=== PATIENT | female | born 1975 | race Caucasian/White ===

== ENCOUNTER 2019-04-29 22:17 | Emergency (ER) | payer OTHER ==
[2019-04-29] MEDS ORDERED: LEVALBUTEROL 1.25 MG/3 ML NEB ONE (22:45)
[2019-04-29] MEDS ORDERED: IBUPROFEN 400 MG TAB ONE (23:22)
[2019-04-29] MEDS ORDERED: IBUPROFEN 200 MG TAB PO ONE (23:22)
[2019-04-29] MEDS ORDERED: DEXAMETHASONE 4 MG TAB ONE (23:22)
[2019-04-29] MEDS ORDERED: BENZONATATE 100 MG CAP PO ONE (23:22)
--- NOTE | 2019-04-30 00:54 | ER ---
Nurse's Notes [facility] Name: Inés Curry Age: 43 yrs Sex: Female : 1975 Arrival Date: 04/29/2019 Time: 22:18 Bed 25 Private MD: Juan Dueñas Diagnosis: Acute pharyngitis Presentation: 04/29 22:25 Presenting complaint: Patient states: states she has had a sore throat, headache and fc dry nonproductive cough x 2 days. 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 Transition of care: patient was not received from another setting of care. Onset of symptoms was April 29, 2019 at 22:00. Risk Assessment: Do you want to hurt yourself or someone else? Patient reports no desire to harm self or others. Initial Sepsis Screen: Does the patient meet any 2 criteria? HR > 90 bpm. Yes Does the patient have a suspected source of infection? No. Patient's initial sepsis screen is negative. Care prior to arrival: None. 22:25 Method Of Arrival: Wheelchair 22:25 Acuity: DOUGLAS 3 fc Triage Assessment: 22:25 General: Appears uncomfortable, slender, Behavior is calm, cooperative, appropriate for age. Pain: Complains of pain in chest Pain currently is 3 out of 10 on a pain scale. Quality of pain is described as aching, Pain began suddenly. EENT: Reports pain in throat. Neuro: Level of Consciousness is awake, alert, obeys commands, Oriented to person, place, time, situation, Appropriate for age. Cardiovascular: Reports chest pain, shortness of breath, Heart tones S1 S2 Capillary refill < 3 seconds. Respiratory: Reports shortness of breath cough that is non-productive, dry, hacking, Airway is patent Respiratory effort is even, unlabored, shallow, Respiratory pattern is tachypnea Breath sounds are clear bilaterally. Onset: The symptoms/episode began/occurred gradually, the patient has moderate shortness of breath. GI: No deficits noted. : No deficits noted. Derm: Skin is pink, warm \T\ dry. Musculoskeletal: Circulation, motion, and sensation intact. Capillary refill < 3 seconds, Range of motion: intact in all extremities. 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 - Social history:: Smoking status: Patient/guardian denies using tobacco, Patient/guardian denies using alcohol, street drugs. - Ebola Screening: : Patient negative for fever greater than or equal to 101.5 degrees Fahrenheit, and additional compatible Ebola Virus Disease symptoms Patient denies exposure to infectious person Patient denies travel to an Ebola-affected area in the 21 days before illness onset. Screenin:25 Abuse screen: Denies threats or abuse. Denies injuries from another. Nutritional fc screening: No deficits noted. Tuberculosis screening: No symptoms or risk factors identified. Fall Risk None identified. Assessment: 22:40 General: Appears in no apparent distress. comfortable, Behavior is calm, cooperative, ca1 appropriate for age. 22:40 Pain: Denies pain. Neuro: Level of Consciousness is awake, alert, obeys commands, ca1 Oriented to person, place, time, situation. Cardiovascular: Heart tones S1 S2 present Capillary refill < 3 seconds Patient's skin is warm and dry. Rhythm is sinus rhythm. Respiratory: Reports cough that is Airway is patent Respiratory effort is even, unlabored, Respiratory pattern is regular, symmetrical, Breath sounds are clear bilaterally. Derm: Skin is intact, is healthy with good turgor, Skin is pink, warm \T\ dry. Musculoskeletal: Circulation, motion, and sensation intact. Capillary refill < 3 seconds. 22:58 Reassessment: Dr. Francisco at bedside. ca1 23:42 Reassessment: Patient appears in no apparent distress at this time. Patient is alert, ca1 oriented x 3, equal unlabored respirations, skin warm/dry/pink. Patient states feeling better. 04/30 00:40 Reassessment: Patient appears in no apparent distress at this time. Patient is alert, ca1 oriented x 3, equal unlabored respirations, skin warm/dry/pink. Vital Signs: 04/29 22:25 BP 113 / 66; Pulse 122; Resp 26; Temp 99.3(O); Pulse Ox 100% on R/A; Weight 52.16 kg fc (R); Height 4 ft. 11 in. (149.86 cm) (R); Pain 3/10; 23:03 Temp 98.9(O); ca1 23:42 BP 109 / 66; Pulse 96; Resp 20; Pulse Ox 95% on R/A; ca1 04/30 00:40 BP 111 / 71; Pulse 93; Resp 19; Temp 98.9; Pulse Ox 95% on R/A; ca1 04/29 22:25 Body Mass Index 23.23 (52.16 kg, 149.86 cm) ED Course: 04/29 22:18 Patient arrived in ED. am2 22:18 Juan Dueñas MD is Private Physician. am2 22:22 Jerica Rodriguez, HAO is Primary Nurse. ca1 22:25 Arm band placed on Patient placed in an exam room, on a stretcher. fc 22:25 Patient has correct armband on for positive identification. Bed in low position. Call fc light in reach. monitoring and evaluation advisor on. Pulse ox on. NIBP on. 22:25 No provider procedures requiring assistance completed. fc 22:36 Alec Francisco MD is Attending Physician. ps1 22:36 Triage completed. 04/30 00:53 Juan Dueñas MD is Referral Physician. ps1 01:01 Patient did not have IV access during this emergency room visit. ca1 Administered Medications: 04/29 22:32 Drug: Xopenex 1.25 mg Route: Inhalation; fc 22:46 Follow up: Response: No adverse reaction; Marked relief of symptoms fc 23:05 Drug: Decadron 10 mg Route: PO; ca1 23:56 Follow up: Response: No adverse reaction ca1 23:10 Drug: Tessalon Perle 200 mg Route: PO; ca1 23:56 Follow up: Response: No adverse reaction ca1 23:15 Drug: Ibuprofen 600 mg Route: PO; ca1 23:56 Follow up: Response: No adverse reaction ca1 Outcome: 04/30 00:54 Discharge ordered by . ps1 01:01 Discharged to home ambulatory, with significant other. ca1 01:01 Condition: stable 01:01 Discharge instructions given to patient, Instructed on discharge instructions, follow up and referral plans. medication usage, Demonstrated understanding of instructions, follow-up care, medications, Prescriptions given X 2. 01:02 Patient left the ED. ca1 Signatures: Clarice Thao RN RN fc Salome Obregon am2 Alec Francisco MD MD ps1 Jerica Rodriguez RN RN ca1 Corrections: (The following items were deleted from the chart) 04/29 23:02 22:35 General: Appears ca1 ca1 23:46 23:42 BP 109 / 68; ca1 ca1
--- NOTE | 2019-04-30 00:54 | EDPHYS ---
Physician Documentation [facility] Name: Inés Curry Age: 43 yrs Sex: Female : 1975 Arrival Date: 04/29/2019 Time: 22:18 Bed 25 Private MD: Juan Dueñas ED Physician Alec Francisco HPI: 04/29 23:41 This 43 yrs old Female presents to ER via Wheelchair with complaints of ps1 Breathing Difficulty, Shortness Of Breath, Cough. 23:41 patient states that she has had PND and sore throat for a couple of days. States ps1 tonight she got into a coughing fit and then had shortness of breath and wheezing. Patient has no hx of asthma. Symptoms have since improved and was given xopenex prior to my evaluation. Patient has taken DXM for cough symptoms and no allergy medications 2/2 hx of adverse reaction to pseudaphed r/t tachycardia. 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 - Social history:: Smoking status: Patient/guardian denies using tobacco, Patient/guardian denies using alcohol, street drugs. - Ebola Screening: : Patient negative for fever greater than or equal to 101.5 degrees Fahrenheit, and additional compatible Ebola Virus Disease symptoms Patient denies exposure to infectious person Patient denies travel to an Ebola-affected area in the 21 days before illness onset. ROS: 23:41 Constitutional: Negative for fever, chills, and weight loss, Eyes: Negative for injury, ps1 pain, redness, and discharge, ENT: Negative for injury, pain, and discharge, Cardiovascular: Negative for chest pain, palpitations, and edema, Abdomen/GI: Negative for abdominal pain, nausea, vomiting, diarrhea, and constipation, Back: Negative for injury and pain, MS/Extremity: Negative for injury and deformity, Skin: Negative for injury, rash, and discoloration, Neuro: Negative for headache, weakness, numbness, tingling, and seizure. 23:41 ENT: Positive for sinus congestion. 23:41 Respiratory: Positive for cough, with no reported sputum. Exam: 23:41 Constitutional: This is a well developed, well nourished patient who is awake, alert, ps1 and in no acute distress. Head/Face: Normocephalic, atraumatic. Eyes: Pupils equal round and reactive to light, extra-ocular motions intact. Lids and lashes normal. Conjunctiva and sclera are non-icteric and not injected. ENT: Nares patent. No nasal discharge, no septal abnormalities noted. Tympanic membranes are normal and external auditory canals are clear. Oropharynx with no redness, swelling, or masses, exudates, or evidence of obstruction, uvula midline. Mucous membranes moist. Chest/axilla: Normal chest wall appearance and motion. Nontender with no deformity. No lesions are appreciated. Cardiovascular: Regular rate and rhythm. No gallops, murmurs, or rubs. Normal PMI, no JVD. No pulse deficits. Respiratory: Lungs have equal breath sounds bilaterally, clear to auscultation and percussion. No rales, rhonchi or wheezes noted. No increased work of breathing, no retractions or nasal flaring. Abdomen/GI: Soft, non-tender, with normal bowel sounds. No distension or tympany. No guarding or rebound. No evidence of tenderness throughout. Skin: Warm, dry with normal turgor. Normal color with no rashes, no lesions, and no evidence of cellulitis. MS/ Extremity: Pulses equal, no cyanosis. Neurovascular intact. Full, normal range of motion. Neuro: Awake and alert, GCS 15, oriented to person, place, time, and situation. Cranial nerves II-XII grossly intact. Sensory grossly intact. Psych: Awake, alert, with orientation to person, place and time. Behavior, mood, and affect are within normal limits. Vital Signs: 22:25 BP 113 / 66; Pulse 122; Resp 26; Temp 99.3(O); Pulse Ox 100% on R/A; Weight 52.16 kg fc (R); Height 4 ft. 11 in. (149.86 cm) (R); Pain 3/10; 23:03 Temp 98.9(O); ca1 23:42 BP 109 / 66; Pulse 96; Resp 20; Pulse Ox 95% on R/A; ca1 04/30 00:40 BP 111 / 71; Pulse 93; Resp 19; Temp 98.9; Pulse Ox 95% on R/A; ca1 04/29 22:25 Body Mass Index 23.23 (52.16 kg, 149.86 cm) fc MDM: 04/29 23:04 Patient medically screened. ps1 04/29 23:01 Order name: Strep; Complete Time: 00:21 ps1 04/29 23:01 Order name: Flu; Complete Time: 00:21 ps1 04/30 00:22 Order name: Throat Culture EDMS Administered Medications: 22:32 Drug: Xopenex 1.25 mg Route: Inhalation; fc 22:46 Follow up: Response: No adverse reaction; Marked relief of symptoms fc 23:05 Drug: Decadron 10 mg Route: PO; ca1 23:56 Follow up: Response: No adverse reaction ca1 23:10 Drug: Tessalon Perle 200 mg Route: PO; ca1 23:56 Follow up: Response: No adverse reaction ca1 23:15 Drug: Ibuprofen 600 mg Route: PO; ca1 23:56 Follow up: Response: No adverse reaction ca1 Disposition: 04/30/19 00:54 Discharged to Home. Impression: Acute pharyngitis. - Condition is Stable. - Discharge Instructions: Pharyngitis. - Prescriptions for Tessalon Perles 100 mg Oral Capsule - take 1 capsule by ORAL route every 8 hours As needed; 15 capsule. chlorpheniramine maleate 4 mg Oral Tablet - take 1 tablet by ORAL route every 6 hours As needed; 30 tablet. - Medication Reconciliation Form, Thank You Letter, Antibiotic Education, Prescription Opioid Use form. - Follow up: Juan Dueñas MD; When: As needed; Reason: Further diagnostic work-up, Recheck today's complaints, Continuance of care, Re-evaluation by your physician. Follow up: Emergency Department; When: As needed; Reason: Fever > 102 F, Worsening of condition. - Problem is new. - Symptoms have improved. Signatures: Dispatcher [employer] EDMS Clarice Thao RN RN fc Alec Francisco MD MD ps1 Jerica Rodriguez RN RN ca1 Corrections: (The following items were deleted from the chart) 04/30 01:02 00:54 04/30/2019 00:54 Discharged to Home. Impression: Acute pharyngitis. Condition is ca1 Stable. Forms are Medication Reconciliation Form, Thank You Letter, Antibiotic Education, Prescription Opioid Use. Follow up: Juan Dueñas; When: As needed; Reason: Further diagnostic work-up, Recheck today's complaints, Continuance of care, Re-evaluation by your physician. Follow up: Emergency Department; When: As needed; Reason: Fever > 102 F, Worsening of condition. Problem is new. Symptoms have improved. ps1
--- NOTE | 2019-04-30 07:54 | EKG ---
Test Date: 2019-04-29 Test Time: 22:36:59 Home Delivery Driver: PATIENCE MEASUREMENT RESULTS: Intervals: Rate: 124 TX: 116 QRSD: 86 QT: 324 QTc: 465 [place]: P: 42 TX: 116 QRS: -8 T: -70 INTERPRETIVE STATEMENTS: Sinus tachycardia ST & T wave abnormality, consider inferior ischemia ST & T wave abnormality, consider anterolateral ischemia Abnormal ECG No previous ECG available for comparison Electronically Signed On 04-30-19 07:52:47 CDT by Ari Brewer
== END 2019-04-30 01:02 | disposition home or self-care (01) ==
LOC: ER 22:17
DX: J02.9 Acute pharyngitis, unspecified (principal); F32.9 Major depressive disorder, single episode, unspecified
CPT/HCPCS: 87070; 87081; 87804; 93005; 99284

== ENCOUNTER 2020-02-02 20:05 | Inpatient (IN) | payer OTHER ==
[2020-02-02] MEDS ORDERED: ONDANSETRON 4 MG/2 ML VIAL ONE (20:52)
[2020-02-02] MEDS ORDERED: NA CHLORIDE 0.9% 1,000 ML ONE (20:52)
[2020-02-02 20:53] LABS: Absolute Lymphocytes (CBC) 0.4 K/uL (0.7-4.9); Basophils % 0.1 % (0-1.3); Hematocrit 40.5 % (36.0-45.0); Lymphocytes % 3.7 % (15.3-44.8); MPV 10.1 fL (7.6-11.3); RBC Red Blood Cell Count 4.44 M/uL (3.86-4.86)
[2020-02-02 21:12] LABS: Bilirubin Direct 0.1 mg/dL (0-0.2); Bilirubin Total 0.3 mg/dL (0.2-1.0); Potassium 4.3 mmol/L (3.5-5.1); Protein, Total 7.2 g/dL (6.4-8.2)
[2020-02-02 21:19] LABS: Blood Morphology Comment NOT SEEN (NOT SEEN); Platelet Estimate ADEQ; Urine White Blood Cell Casts OK
[2020-02-02] MEDS ORDERED: MORPHINE 2 MG/ML SYR ONE (22:20)
[2020-02-02] MEDS ORDERED: PROMETHAZINE INJ 25 MG/ML AMP ONE (22:31)
--- NOTE | 2020-02-02 22:39 | ER ---
Nurse's Notes [facility] Name: Inés Curry Age: 44 yrs Sex: Female : 1975 Arrival Date: 02/02/2020 Time: 20:08 Bed 5 Private MD: Juan Dueñas Diagnosis: Cyclical vomiting, intractable Presentation: 02/01 20:29 Chief complaint: Spouse and/or significant other states: "She has her gallbladder aj1 removed today, her liver was also bleeding some, so they had to do something to stop that, she was feeling nauseous in the recovery room but they sent us home anyway, we've been home since 1245, she took her pain medicine at 1630 and then she started vomiting, so I called the surgeon, Dr. Lal and he prescribed Zofran, she took that at 1906 and she was still feeling nauseous.". Coronavirus screen: The patient has NOT traveled to a country currently being monitored by the [facility] within the last 14 days. Ebola Screen: Patient denies travel to an Ebola-affected area in the 21 days before illness onset. Initial Sepsis Screen: Does the patient meet any 2 criteria? HR > 90 bpm. Does the patient have a suspected source of infection? Yes: Acute abdominal pain. Risk Assessment: Do you want to hurt yourself or someone else? Patient reports no desire to harm self or others. 20:29 Method Of Arrival: Ambulatory aj1 20:29 Acuity: DOUGLAS 2 aj1 Triage Assessment: 20:33 General: Appears uncomfortable, Behavior is cooperative, restless. Pain: Complains of aj1 pain in face Pain currently is 8 out of 10 on a pain scale. Neuro: Level of Consciousness is awake, alert, obeys commands. Cardiovascular: Patient's skin is warm and dry. Respiratory: Airway is patent Respiratory effort is even, unlabored, Respiratory pattern is regular, symmetrical. GI: Reports nausea, vomiting. Derm: Skin is pale. Historical: - Allergies: 20:33 No Known Allergies; aj1 - PMHx: 20:33 allergies; Depression; irregular heart beat; aj1 - Immunization history:: Flu vaccine is not up to date. - Social history:: Smoking status: Patient denies any tobacco usage or history of. Screenin:53 Abuse screen: Denies threats or abuse. Denies injuries from another. Nutritional rv screening: No deficits noted. Tuberculosis screening: No symptoms or risk factors identified. Fall Risk None identified. Assessment: 20:52 General: Appears in no apparent distress. ill, Behavior is calm, cooperative. Pain: rv Complains of pain in head. Neuro: Level of Consciousness is awake, alert, obeys commands, Oriented to person, place, time, situation, Reports headache that is the "worst ever". Cardiovascular: Patient's skin is warm and dry. Respiratory: Airway is patent Breath sounds are clear bilaterally. GI: Pt is actively vomiting bile, Reports nausea, vomiting. Derm: Skin is intact. 23:00 Reassessment: Patient appears in no apparent distress at this time. Patient and/or rv family updated on plan of care and expected duration. Pain level reassessed. Patient is alert, oriented x 3, equal unlabored respirations, skin warm/dry/pink. patient updated on the test results and plan of care. patient and family understood and agreed. Vital Signs: 20:29 BP 130 / 71; Pulse 145; Resp 20; Temp 98.4; Pulse Ox 95% on R/A; Weight 52.16 kg (R); aj1 Height 4 ft. 11 in. (149.86 cm) (R); Pain 8/10; 20:29 Body Mass Index 23.23 (52.16 kg, 149.86 cm) aj1 ED Course: 20:08 Patient arrived in ED. es 20:08 Juan Dueñas MD is Private Physician. es 20:33 Triage completed. aj1 20:35 Dominick Aj, HAO is Primary Nurse. rv 20:35 Avel Biswas MD is Attending Physician. tw4 20:45 Initial lab(s) drawn, by ok, sent to lab. Inserted saline lock: 20 gauge in right rv forearm, using aseptic technique. Blood collected. 20:53 Patient has correct armband on for positive identification. Pulse ox on. NIBP on. rv 20:53 Arm band placed on Patient placed in the treatment room, on a stretcher, Patient rv notified of wait time. 22:37 Don Vargas MD is Hospitalizing Provider. tw4 02/02 00:36 No provider procedures requiring assistance completed. IV is patent, with fluids rv infusing freely, with good blood return, Patient admitted, IV remains in place. 02:21 Repeat lab(s) drawn. by ok, sent to lab. sg Administered Medications: 02/01 20:51 Drug: NS 0.9% 1000 ml Route: IV; Rate: 1 bolus; Site: right forearm; rv 02/02 00:37 Follow up: IV Status: Completed infusion; IV Intake: 1000ml rv 02/01 20:52 Drug: Zofran (Ondansetron) 4 mg Route: IVP; Site: right forearm; rv 02/02 00:37 Follow up: Response: No adverse reaction rv 02/01 22:20 Drug: morphine 2 mg Route: IVP; Site: right forearm; rv 02/02 00:37 Follow up: Response: No adverse reaction rv 00:37 Follow up: Response: Marked relief of symptoms; RASS: Alert and Calm (0) rv 02/01 22:48 Drug: Phenergan 6.25 mg Route: IVP; Site: right forearm; ea 02/02 00:38 Follow up: Response: No adverse reaction rv Intake: 00:37 IV: 1000ml; Total: 1000ml. rv Outcome: 02/01 22:37 Decision to Hospitalize by Provider. tw4 02/02 00:37 Admitted to ER Hold. Please see [facility] for further documentation. rv Condition: good Instructed on the need for admit, Demonstrated understanding of instructions. 12:43 Patient left the ED. eb Signatures: Rose Mary Vernon RN RN aj1 Chevy Cordero RN Radha Noel Elena, RN RN ea Wadley, Terrence, MD MD tw4 Charlene Brito Ronaldo RN RN rv Corrections: (The following items were deleted from the chart) 02/01 22:21 22:20 morphine 2 mg IVP in left hand rv rv
--- NOTE | 2020-02-02 22:40 | EDPHYS ---
Physician Documentation [facility] Name: Inés Curry Age: 44 yrs Sex: Female : 1975 Arrival Date: 02/02/2020 Time: 20:08 Bed 5 Private MD: Juan Dueñas ED Physician Avel Biswas HPI: 02/02 06:58 This 44 yrs old Female presents to ER via Ambulatory with complaints of tw4 Vomiting. 06:58 The patient presents to the emergency department with nausea, vomiting. Onset: The tw4 symptoms/episode began/occurred today. Possible causes: unknown. The symptoms are aggravated by nothing. The symptoms are alleviated by nothing. Associated signs and symptoms: The patient has no apparent associated signs or symptoms. The patient has not experienced similar symptoms in the past. 06:58 Severity of symptoms: At their worst the symptoms were moderate in the emergency tw4 department the symptoms are unchanged. The patient has been recently been admitted at [facility], by Dr. Kumar, was discharged earlier today. Historical: - Allergies: 02/01 20:33 No Known Allergies; aj1 - PMHx: 20:33 allergies; Depression; irregular heart beat; aj1 - Immunization history:: Flu vaccine is not up to date. - Social history:: Smoking status: Patient denies any tobacco usage or history of. ROS: 02/02 06:58 Constitutional: Negative for fever, chills, and weight loss, Eyes: Negative for injury, tw4 pain, redness, and discharge, Cardiovascular: Negative for chest pain, palpitations, and edema, Respiratory: Negative for shortness of breath, cough, wheezing, and pleuritic chest pain, Back: Negative for injury and pain, MS/Extremity: Negative for injury and deformity, Skin: Negative for injury, rash, and discoloration, Neuro: Negative for headache, weakness, numbness, tingling, and seizure. Abdomen/GI: Positive for abdominal pain, nausea and vomiting, nausea, vomiting, and diarrhea, nausea, vomiting, Negative for diarrhea, constipation, abdominal cramps, abdominal distension, anorexia, dysphagia, hematemesis, black/tarry stool, rectal pain, rectal bleeding, bowel incontinence, flatulence. Exam: 06:58 Head/Face: Normocephalic, atraumatic. Chest/axilla: Normal chest wall appearance and tw4 motion. Nontender with no deformity. No lesions are appreciated. Cardiovascular: Regular rate and rhythm with a normal S1 and S2. No gallops, murmurs, or rubs. Normal PMI, no JVD. No pulse deficits. Respiratory: Lungs have equal breath sounds bilaterally, clear to auscultation and percussion. No rales, rhonchi or wheezes noted. No increased work of breathing, no retractions or nasal flaring. Back: No spinal tenderness. No costovertebral tenderness. Full range of motion. 06:58 Skin: Warm, dry with normal turgor. Normal color with no rashes, no lesions, and no evidence of cellulitis. MS/ Extremity: Pulses equal, no cyanosis. Neurovascular intact. Full, normal range of motion. Neuro: Awake and alert, GCS 15, oriented to person, place, time, and situation. Cranial nerves II-XII grossly intact. Motor strength 5/5 in all extremities. Sensory grossly intact. Cerebellar exam normal. Normal gait. 06:58 Constitutional: The patient appears in obvious distress, mildly distressed, obviously ill, pale. 06:58 Abdomen/GI: Inspection: scar(s), are noted in the epigastric area and right upper quadrant, Bowel sounds: diminished, Palpation: mild abdominal tenderness, in all quadrants. Vital Signs: 02/01 20:29 BP 130 / 71; Pulse 145; Resp 20; Temp 98.4; Pulse Ox 95% on R/A; Weight 52.16 kg (R); aj1 Height 4 ft. 11 in. (149.86 cm) (R); Pain 8/10; 20:29 Body Mass Index 23.23 (52.16 kg, 149.86 cm) aj1 MDM: 20:35 Patient medically screened. tw4 02/02 06:58 Differential diagnosis: Nonspecific abd pain, gastritis, cholecystitis, pancreatitis. tw4 Data reviewed: vital signs, nurses notes. Data interpreted: Pulse oximetry: Interpretation: normal. Counseling: I had a detailed discussion with the patient and/or guardian regarding: the historical points, exam findings, and any diagnostic results supporting the discharge/admit diagnosis, lab results. Medication response: Phenergan markedly relieved the patient's nausea. Response to treatment: the patient's symptoms have markedly improved after treatment, and as a result, I will admit patient, administer IV fluids, NS bolus, NS maintenence. Physician consultation: Jewel Lal MD regarding admission, patient's condition, and will see patient in inpatient room, would like admission per Dr. Don Vargas MD. Admission orders: after a detailed discussion of the patient's condition and case, the admit orders are written by me. 02/01 20:36 Order name: Basic Metabolic Panel; Complete Time: 22:29 tw4 02/01 20:36 Order name: CBC with Diff; Complete Time: 22:29 tw4 02/01 20:36 Order name: Creatinine for Radiology; Complete Time: 22:29 tw4 02/01 20:36 Order name: Hepatic Function; Complete Time: 22:29 tw4 02/01 20:36 Order name: Lipase; Complete Time: 22:29 tw4 02/01 20:55 Order name: CBC Smear Scan; Complete Time: 22:29 EDCO 02/02 02:29 Order name: Hemoglobin; Complete Time: 04:28 EDCO 02/02 04:28 Interpretation: Normal except: HGB 11.0. tw4 02/02 05:02 Order name: CBC with Automated Diff EDCO 02/02 10:47 Order name: Hemoglobin EDCO 02/02 10:47 Order name: Hematocrit [facility] 02/01 20:36 Order name: IV Saline Lock; Complete Time: 20:51 tw4 02/01 20:36 Order name: Labs collected and sent; Complete Time: 20:51 tw4 Administered Medications: 02/01 20:51 Drug: NS 0.9% 1000 ml Route: IV; Rate: 1 bolus; Site: right forearm; rv 02/02 00:37 Follow up: IV Status: Completed infusion; IV Intake: 1000ml rv 02/01 20:52 Drug: Zofran (Ondansetron) 4 mg Route: IVP; Site: right forearm; rv 02/02 00:37 Follow up: Response: No adverse reaction rv 02/01 22:20 Drug: morphine 2 mg Route: IVP; Site: right forearm; rv 02/02 00:37 Follow up: Response: No adverse reaction rv 00:37 Follow up: Response: Marked relief of symptoms; RASS: Alert and Calm (0) rv 02/01 22:48 Drug: Phenergan 6.25 mg Route: IVP; Site: right forearm; ea 02/02 00:38 Follow up: Response: No adverse reaction rv Disposition: 02/02/20 22:37 Hospitalization ordered by Don Vargas for Inpatient Admission. Preliminary diagnosis is Cyclical vomiting, intractable. - Bed requested for HS ER HOLD. - Status is Inpatient Admission. eb - Condition is Stable. - Problem is new. - Symptoms are unchanged. Signatures: Dispatcher [employer] EDMS Rose Mary Vernon RN RN aj1 Celina Herbert RN RN lp1 Haylie Murphy RN RN ea Wadley, Terrence, MD MD tw4 Charelne Brito Dominick Aj RN RN rv Corrections: (The following items were deleted from the chart) 02/01 22:54 22:37 Hospitalization Ordered by Don Vargas MD for Inpatient Admission. Preliminary lp1 diagnosis is Cyclical vomiting, intractable. Bed requested for Telemetry/MedSurg (Inpatient). Status is Inpatient Admission. Condition is Stable. Problem is new. Symptoms are unchanged. tw4 02/02 09:38 02/01 22:54 02/02/2020 22:37 Hospitalization Ordered by Don Vargas MD for Inpatient eb Admission. Preliminary diagnosis is Cyclical vomiting, intractable. Bed requested for [facility] ER HOLD. Status is Inpatient Admission. Condition is Stable. Problem is new. Symptoms are unchanged. lp1 02/02 12:43 09:38 02/02/2020 22:37 Hospitalization Ordered by Don Vargas MD for Inpatient eb Admission. Preliminary diagnosis is Cyclical vomiting, intractable. Bed requested for [facility] ER HOLD. Status is Inpatient Admission. Condition is Stable. Problem is new. Symptoms are unchanged. eb
[2020-02-02] MEDS ORDERED: NA CHLORIDE 0.9% 2,000 ML ONE (22:56)
[2020-02-02] MEDS ORDERED: MORPHINE 2 MG/ML SYR IV PRN (23:31)
[2020-02-02] MEDS ORDERED: PROMETHAZINE INJ 25 MG/ML AMP IV PRN (23:38)
[2020-02-02] MEDS ORDERED: SODIUM CHLORIDE 0.9% 10ML INJ IV PRN (23:39)
[2020-02-02] MEDS ORDERED: Ringers Lactate 1,000 ML IV SCH (23:45)
[2020-02-03] MEDS ORDERED: MORPHINE 2 MG/ML SYR IV PRN (00:03)
[2020-02-03] MEDS ORDERED: PROMETHAZINE INJ 25 MG/ML AMP ONE ×2 (00:37→08:44)
[2020-02-03 02:32] VITALS: O2SAT 100; BMI 33.6
[2020-02-03 04:52] LABS: Absolute Lymphocytes (CBC) 0.8 K/uL (0.7-4.9); Basophils % 0.1 % (0-1.3); Hematocrit 32.3 % (36.0-45.0); MPV 10.2 fL (7.6-11.3); RBC Red Blood Cell Count 3.58 M/uL (3.86-4.86)
--- NOTE | 2020-02-03 07:25 | P.CNS ---
Date of Consult: 02/02/20 Reason for Consult: Medical management Requesting Physician: Jewel Lal Chief Complaint: Abdominal pain and intractable nausea and vomiting History of Present Illness: Patient is a 44-year-old female who came to the hospital because she was having intractable nausea and vomiting. Patient recently had laparoscopic cholecystectomy. Patient suffered a liver laceration. Patient's bleeding was controlled. After surgery patient has had intractable nausea and vomiting. Patient persisted with some vomiting and her brought her to the emergency room. Patient was given antiemetics-Zofran and phenergan-inpatient nausea and vomiting resolved. Patient is given IV hydration. Patient's symptoms are improved. Patient is doing much better. Surgery evaluation pending and patient will start on diet if surgery is agreeable. Allergies NKDA Allergy (Uncoded 02/01/20 15:21) Unknown Home Medications: Black Cohosh 540 mg PO Q12H 02/01/20 Buproprion S.r. [Wellbutrin SR] 100 mg PO DAILY 02/01/20 Codeine/APAP [Tylenol W/Codeine #3 tab] 1 tab PO Q8H PRN 02/01/20 Pyrilamine/Dextromethorphan Hb [[place] Dmt Tablet] 1 each PO Q8H 02/01/20 - Past Medical/Surgical History -: Depression -: Bilateral tubal ligation -: Abdominal plasty -: Partial hysterectomy - Family History Father Family History: Reviewed- Non-Contributory - Social History Smoking Status: Never smoker Alcohol use: No CD- Drugs: No Place of Residence: Home Review of Systems 10-point ROS is otherwise unremarkable Physical Examination Reviewed General: Alert, In no apparent distress, Oriented x3 HEENT: Atraumatic, PERRLA, Mucous membr. moist/pink, EOMI, Sclerae nonicteric Neck: Supple, 2+ carotid pulse no bruit, No LAD, Without JVD or thyroid abnormality Respiratory: Clear to auscultation bilaterally, Normal air movement Cardiovascular: Regular rate/rhythm, Normal S1 S2, No murmurs Gastrointestinal: Normal bowel sounds, Soft and benign, Non-distended, Tenderness (Minimal tenderness epigastric region) Musculoskeletal: No clubbing, No swelling, No tenderness Integumentary: No rashes Neurological: Normal gait, Normal speech, Normal strength at 5/5 x4 extr, Normal tone, Sensation intact, Cranial nerves 3-12 intact, Normal affect Lymphatics: No axilla or inguinal lymphadenopathy Laboratory Data (last 24 hrs) 02/02/20 20:45: Creatinine 0.73 02/02/20 20:45: WBC 11.5 H, Hgb 13.2, Hct 40.5, Plt Count 279 02/02/20 20:45: Sodium 138, Potassium 4.3, BUN 9, Creatinine 0.74, Glucose 152 H , Total Bilirubin 0.3, AST 80 H, ALT 64, Alkaline Phosphatase 67, Lipase 162 - Problems (1) Status post laparoscopic cholecystectomy Current Visit: Yes Status: Acute (2) Postoperative bleeding from incision Current Visit: Yes Status: Acute Conclusions/ Impression: Plan: 1. Hydration 2. Cont w/ antiemetics 3. Monitor labs-monitor serial H&H every 4 hr 4. Surgery evaluation 5. Clear liquid diet and advance as tolerated 6. GI and DVT prophylaxis Critical Care: No Time Spent Managing Pts care (In Minutes): 45
[2020-02-03] MEDS ORDERED: Ringers Lactate 1,000 ML IV SCH (08:00)
[2020-02-03] MEDS ORDERED: Ringers Lactate 1,000 ML IV ONE (08:18)
[2020-02-03] MEDS ORDERED: MORPHINE 4 MG/ML SYR ONE (08:36)
[2020-02-03] MEDS ORDERED: PANTOPRAZOLE 40 MG INJ IVP SCH (09:00)
[2020-02-03 10:32] LABS: Hematocrit 36.7 % (36.0-45.0)
[2020-02-03 10:54] VITALS: BP 108/68; TEMP 98.2
--- NOTE | 2020-02-03 21:08 | P.CNS ---
Date of Consult: 02/03/20 PC: This patient brought to the emergency room after having nausea and vomiting at home. HPC: Patient had undergone a laparoscopic cholecystectomy earlier in the day. States that immediately after surgery she began to have nausea and did not feel well. She was discharged home. Later on that evening the nausea intensified and as directed she came back to the emergency room for evaluation. PSHx: Status post lap choly SOC: No known allergies SYS REVIEW: No cough, wheeze, shortness of breath. No chest pain or palpitations. Just some abdominal soreness on the right side. No shoulder pain. Has not been running any temperature fever at home. Voiding on her own. O/E awake alert vital signs are stable, looks very comfortable at the moment HEENT: Within normal limits, no evidence of jaundice Chest: Chest movement equal bilaterally ABD: No peritoneal signs, appropriate incisional pain LOCO: Intact DATA: H&H have remained stable after IV fluids IMPRESSION: Patient much improved PLAN: This patient, had a consider amount of nausea after surgery. She was kept in observed in the emergency room overnight. She received some antiemetics. At the current time her vital signs are stable, she has no evidence of postural hypertension has been up ambulating. She is voiding on her own. She is comfortable going home. She has been told should she have any questions or problems she is return immediately to the emergency room. She will contact the surgeon of record on Wednesday for a follow-up appointment .
== END 2020-02-03 12:48 | disposition home or self-care (01) | DRG 392 ==
LOC: ER 20:05 → ERHOLD 23:09
PROVIDERS: ADMIT Surgery; ATTEND Surgery
DX: R11.2 Nausea with vomiting, unspecified (principal); Z90.49 Acquired absence of other specified parts of digestive tract
CPT/HCPCS: 36415; 80048; 80076; 83690; 85014; 85018; 85025; 88304; 96361; 96374; 96375; 99285; J1100; J1170; J2250; J2270; J2405; J2550; J2704; J2710; J3010; J7030; J7120

== ENCOUNTER → 2020-02-02 | Day surgery (SDC) | payer OTHER ==
[~2020-02-02] MED LIST: BUPIVACA 0.5%/EPI 0.0005%/PF 30 ML VIAL ONE; CEFOXITIN/SWI 1gm 1 GM/10 ML SYR ONE; FENTANYL CITR 250 MCG/5 ML ONE; GLYCOPYRROLATE 0.2 MG/ML SYR ONE; KETOROLAC 30 MG/ML INJ ONE; LIDOCAINE 2% MPF 5 ML VIAL ONE; MIDAZOLAM HCL 2 MG/2 ML INJ ONE; NEOSTIGMINE 1 MG/ML -5 ML ONE; ONDANSETRON 4 MG/2 ML VIAL ONE; ROCURONIUM 50 MG/5 ML VIAL IV ONE; Ringers Lactate 1,000 ML IV ONE; dexAMETHasone 10 MG/ML VIAL ONE; propofoL 200 MG/20 ML VIAL IV ONE
--- NOTE | 2020-02-02 09:37 | P.OP ---
Preoperative diagnosis: Chronic Calculous Cholecystitis Postoperative diagnosis: Chronic Calculous Cholecystitis Primary procedure: Laparoscopic Cholecystectomy Anesthesia: GETA + Local Estimated blood loss: <20cc Specimen: Gallbladdr Findings: Intra-abdominal adhesions, tear to liver capsule near IVC from adhesions Complications: Other (liver capsule tear near IVC) Implants: Surgicel hemostatic matrix Transferred to: Recovery Room Condition: Good
[2020-02-02] MEDS: HYDROMORPHONE HCL 1 MG/ML INJ ONE ×6 (10:04→10:40)
[2020-02-02 12:28] VITALS: BP 118/67; TEMP 97.8; O2SAT 95
--- NOTE | 2020-02-02 14:28 | OP ---
Date of Procedure: 02/02/2020 Surgeon: Jewel Lal MD, Preoperative Diagnosis: Chronic calculous cholecystitis. Postoperative Diagnosis: Chronic calculous cholecystitis. Procedure Performed: Laparoscopic cholecystectomy. Anesthesia: General endotracheal plus local with 0.5% Marcaine with epinephrine. Estimated Blood Loss: Less than 20 mL. Specimen: Gallbladder. Findings: 1.Intraabdominal adhesions. 2.Significant adhesions between the IVC and the surface of the liver. 3.Short cystic duct. 4.Evidence of chronic calculous cholecystitis. Complications: Small tear to the liver capsule near the IVC from previous adhesions controlled with electrocautery and Surgicel. Implants: Surgicel hemostatic matrix. Disposition: Transferred to recovery room in good condition. Procedure In Detail: After informed consent was obtained, patient was brought to the operating room, prepped and draped in the usual sterile fashion. After adequate anesthesia was achieved, supraumbil ical area was anesthetized with 0.25% Marcaine, sharply incised, and a 5 mm trocar was introduced in the abdomen without complication. Insufflation was obtained to 15 mmHg at this time. There was no i njury to vital structures upon entry in the abdomen. Additional trocar site was chosen in the epigas trium. This was similarly anesthetized, sharply incised. A 5 mm trocar was introduced in the abdome n without evidence of complication. The umbilical trocar was then upsized to a 12 mm under direct vi sualization without complication. Additional trocar sites in the right upper quadrant. This was sim ilarly anesthetized and sharply incised. A 5 mm trocar was introduced in the abdomen without evidenc e of complication. The patient was positioned head up right-side up position. Ratcheted grasper was used to grasp the patient's gallbladder. There were significant intraabdominal adhesions grasping t he patient's gallbladder pacing toward the patient's right shoulder. There were some adhesions betwe en the inferior vena cava and the anterior surface of the liver capsule, which had some tearing upon distraction of the gallbladder. Adhesions were taken down using electrocautery and the gallbladder w as dissected down to the Angela pouch. The cystic duct and cystic artery were both identified and a critical view of safety was obtained. At this point, the titanium clips were then applied to the 2 skeletonized structures identified as the cystic duct and cystic artery. Cystic duct was found to b e somewhat small and short, but adequate length for placing a clip without any concern for narrowing of the common duct. After the ducts were clipped with titanium clips doubly on the proximal side and singly on the distal side, Endo Sha were used to ligate the 2 above structures. The gallbladder was removed from the hepatic fossa without evidence of complication with minimal spillage of bile and placed in EndoCatch bag, removed the umbilical trocar. Reinsufflation was obtained at this time. T he area was copiously irrigated multiple times until completely clear. There was some oozing from th e hepatic capsule near the IVC where the previous adhesions were appreciated. This area was irrigate d multiple times. There was some minimal venous oozing from this part. The area was fulgurated quit e well until oozing had essentially stopped. A Surgicel hemostatic matrix was then brought in and pa cked in the area. The patient was positioned in neutral position. The cut end was copiously irrigat ed multiple times until completely clear. No additional hemostatic measures were required on the hep atic fossa or in the area of the hepatic capsule posteriorly. The area was copiously irrigated multi ple times. The effluent was clear and the Surgicel was inspected at the end of the procedure, found to be good and dry and left in place at this point. The patient was positioned in neutral position o nce again and all remaining effluent, which was found to be clear, was suctioned at this point. Unde r desufflation, the area was inspected and irrigated one last time. The effluent was clear once agai n and the Surgicel was found to be good without any evidence of accumulation of fluid whatsoever. Th e area was suctioned until completely dry at this point and the umbilical trocar was removed. The um bilical trocar site was closed using a Sam-Blair suture passer with 0 Vicryl in interrupted fas hion with good approximation of tissues. The abdomen was completely desufflated under direct visuali zation without evidence of complication with remaining trocars removed. The skin incisions were all copiously irrigated and closed with a 4-0 Monocryl in a running fashion. Dermabond placed over top. Patient tolerated the procedure well without evidence of complication and transferred to PACU in goo d condition. All counts were correct at the end of the case. TK/MODL Voice ID: [id number] Report ID: [id number]
== END | disposition home or self-care (01) ==
LOC: OR 07:05
PROVIDERS: ATTEND Surgery
PROC: 0FT44ZZ Resection of Gallbladder, Percutaneous Endoscopic Approach (ICD-10-PCS; principal; 2020-02-02 08:30)
DX: K80.10 Calculus of gallbladder with chronic cholecystitis without obstruction (principal); K91.81 Other intraoperative complications of digestive system; Y65.8 Other specified misadventures during surgical and medical care; Y92.234 Operating room of hospital as the place of occurrence of the external cause; K66.0 Peritoneal adhesions (postprocedural) (postinfection); F32.9 Major depressive disorder, single episode, unspecified; F41.9 Anxiety disorder, unspecified; Z86.73 Personal history of transient ischemic attack (TIA), and cerebral infarction without residual deficits
CPT/HCPCS: 88304; J1100; J1170; J2250; J2405; J2704; J2710; J3010; J7120

== ENCOUNTER 2022-10-19 23:25 | Emergency (ER) | payer OTHER ==
--- OUTSIDE RECORDS SUMMARY | 2022-10-19 23:28 | XMS REPORT | Continuity of Care Document ---
:1975 Author Organization [facility] t Address [address] [place] [address] Care Team Providers Name Role Phone Parish TORRES, Catherine Lemus Primary Care Physician [phone] CATHERINE LUGO Attending Clinician Unavailable PETERSON POWELL Attending Clinician Unavailable LAB90 Attending Clinician Unavailable Peterson Smith Attending Clinician Catherine Lugo MD Attending Clinician [phone] Payers Payer Name Policy Type Policy Number Effective Date Expiration Date S clif [employer]ET[employer] 2 [id number] 2021 00:00:00 Problems Condition Condition Condition Status Onset Resolution Last Treating Co mments Source Name Details Category Date Date Treatment Clinician Date No known No known Disease Kelse y active active Seybold problems problems Allergies, Adverse Reactions, Alerts This patient has no known allergies or adverse reactions. Social History Social Habit Start Date Stop Date Quantity Comments Source Exposure to Not sure Angela Seybol d SARS-CoV-2 (event) Sex Ass[birth year] Angela Telles ybold 00:00:00 00:00:00 Smoking Status Start Date Stop Date Source Never smoked tobacco Angela Tellesyb old Medications Ordered Filled Start Stop Current Ordering Indication Dosage Frequency Signature Comments Components Source Medication Medication Date Date Medication? Clinician (SIG) Name Name BUPROPION Yes Angela HCL SR 150 2-08 Seybold MG OR TB12 15:33: 02 Omeprazole 2021-0 Yes [id number] 40mg Take 1 K elsey 40 MG oral 2-08 capsule Seybol d Delayed 00:00: (40 mg Release 00 total) by Capsule mouth daily Immunizations Ordered Immunization Filled Immunization Date Status Commen ts Source Name Name Covid-19 Vaccine 2021-03-01 Completed Angela day ([employer]), Mrna-lnp, 00:00:00 [place] Protein, Pf, 30mcg/0.3ml,IM Covid-19 Vaccine 2021-02-08 Completed Angela merrillld ([employer]), Mrna-lnp, 00:00:00 [place] Protein, Pf, 30mcg/0.3ml,IM Vital Signs Vital Name Observation Time Observation Value Comments Source Systolic blood pressure 2021-12-30 21:26:00 122 mm[Hg] Angela Tellesybold Diastolic blood 2021-12-30 21:26:00 88 mm[Hg] Vanna y ybold pressure Heart rate 2021-12-30 21:26:00 98 /min Angela day Body temperature 2021-12-30 21:26:00 36.28 Yvonne Julianna trini Tellesyblinden Respiratory rate 2021-12-30 21:26:00 16 /min Julianna Srinivasan Body height 2021-12-30 21:26:00 149.9 cm Angela day Body weight 2021-12-30 21:26:00 56.7 kg Angela day BMI 2021-12-30 21:26:00 25.25 kg/m2 Angela Cyndie shay Procedures This patient has no known procedures. Encounters Start End Encounter Admission Attending Care Care Encounter Source Date/Time Date/Time Type Type Clinicians Facility Department ID 2022-07-31 2022-07-31 Outpatient ANGELA LUGO [id number] Angela 00:00:00 00:00:00 CATHERINE Badillool sandy 2022-07-22 2022-07-22 Outpatient ANGELA POWELL [id number] Angela 00:00:00 00:00:00 PETERSON delgado 2022-07-16 2022-07-16 Outpatient ANGELA POWELL [id number] Angela 00:00:00 00:00:00 PETERSON delgado 2022-07-06 2022-07-06 Outpatient LAB90 ANGELA ALCANTAR [id number] Angela 12:00:00 12:00:00 Seybol d 2022-07-06 2022-07-06 Office Alex Powell [id number] Angela 11:00:00 11:30:00 Visit Peterson Millard [id number] Se ybold [id number] 2022-07-06 2022-07-06 Outpatient SHERRY ANGELA ALCANTAR [id number] Angela 00:00:00 00:00:00 PETERSON Seybol d 2022-06-25 2022-06-25 Outpatient [facility]90 ANGELA ALCANTAR [id number] Angela 10:15:00 10:15:00 Seybol d 2022-06-25 2022-06-25 Office Alex Powell [id number] Angela 09:30:00 10:00:00 Visit Peterson Millard [id number] Se ybold [id number] 2022-06-25 2022-06-25 Outpatient SHERRY ANGELA ALCANTAR [id number] Angela 00:00:00 00:00:00 PETERSON Seybol d 2022-06-25 2022-06-25 Outpatient SHERRY ANGELA ALCANTAR [id number] Angela 00:00:00 00:00:00 PETERSON Seybol d 2022-06-01 2022-06-01 Outpatient [facility]90 ANGELA ALCANTAR [id number] Angela 13:55:00 13:55:00 Seybol d 2022-06-01 2022-06-01 Office Alex Poewll [id number] Angela 13:00:00 13:30:00 Visit Peterson Millard [id number] Se ybold [id number] 2022-04-14 2022-04-14 Outpatient ANGELA LUGO [id number] Angela 00:00:00 00:00:00 CATHERINE Seybol d 2022-04-14 2022-04-14 Outpatient ANGELA LUGO [id number] [place] 00:00:00 00:00:00 CATHERINE Badillool sandy 2021-12-31 2021-12-31 Outpatient [facility]90 ANGELA ALCANTAR [id number] Angela 09:20:00 09:20:00 Seybol d 2021-12-31 2021-12-31 Outpatient ANGELA LUGO [id number] Angela 00:00:00 00:00:00 CATHERINE delgado 2021-12-30 2021-12-30 Outpatient LAB90 ANGELA ALCANTAR [id number] Angela 16:45:00 16:45:00 Seybol d 2021-12-30 2021-12-30 Office Alex Lugo [id number] Angela 16:00:00 16:30:00 Visit Catherine Freeman [id number] raimundo Lemus [id number] Results This patient has no known results.
[2022-10-20 00:37] LABS: Urine Blood 3+ (Negative); Urine Glucose 1+ (Negative); Urine Protein 3+ (Negative); Urine Specific Gravity 1.015 (1.005-1.030)
[2022-10-20 01:11] LABS: Urine RBC >50 /HPF (None Seen)
[2022-10-20 01:12] LABS: Urine Bacteria <20 /HPF (<20); Urine Mucus 2+ /HPF (None Seen)
--- NOTE | 2022-10-20 02:21 | EDPHYS ---
Physician Documentation [facility] Name: Inés Curry Age: 47 yrs Sex: Female : 1975 Arrival Date: 10/19/2022 Time: 23:27 Bed 6 Private MD: ED Physician Alex Moore HPI: 10/20 00:45 This 47 yrs old Female presents to ER via Ambulatory with complaints of Urinary Problem.cp 00:45 The patient presents with urinary symptoms, dysuria. Onset: The symptoms/episode cp began/occurred today. Associated signs and symptoms: Pertinent negatives: diarrhea, fever, nausea, vaginal bleeding, vomiting, abdominal pain, back pain. Severity of symptoms: in the emergency department the symptoms are unchanged, despite home interventions. 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 - Social history:: Smoking status: Patient denies any tobacco usage or history of. ROS: 10/20 00:49 Constitutional: Negative for body aches, chills, fever, poor PO intake. cp Abdomen/GI: Negative for abdominal pain, vomiting, diarrhea, constipation. Back: Negative for pain at rest, pain with movement. : Positive for urinary symptoms, burning with urination. Exam: 00:55 Constitutional: The patient appears in no acute distress, alert, awake, non-toxic, well cp developed, well nourished. 00:55 Head/Face: Normocephalic, atraumatic. cp 00:55 Chest/axilla: Inspection: normal. 00:55 Cardiovascular: Rate: normal. 00:55 Respiratory: the patient does not display signs of respiratory distress, Respirations: normal, no use of accessory muscles, no retractions, labored breathing, is not present. 00:55 Abdomen/GI: Exam negative for discomfort, distension, guarding, Inspection: abdomen appears normal. 00:55 Back: pain, is absent, ROM is normal. 00:55 Neuro: Orientation: to person, place \T\ time. Mentation: is normal, Motor: moves all fours, strength is normal, Gait: is steady, at a normal pace, without difficulty. Vital Signs: 10/19 23:29 BP 147 / 82; Pulse 109; Resp 18; Temp 98; Pulse Ox 95% on R/A; Weight 54.43 kg; Height tw5 4 ft. 11 in. (149.86 cm); Pain 8/10; 10/20 00:45 BP 127 / 48; Pulse 93; Resp 16 S; Pulse Ox 94% on R/A; as6 02:49 BP 124 / 62; Pulse 87; Resp 15 S; Pulse Ox 94% on R/A; tw5 10/19 23:29 Body Mass Index 24.24 (54.43 kg, 149.86 cm) tw5 MDM: 10/19 23:57 Patient medically screened. cp 10/20 00:50 Differential diagnosis: kidney stone, urinary tract infection, pyelonephritis, sepsis. cp 02:20 Data reviewed: vital signs, nurses notes, lab test result(s), urinalysis. cp 02:20 Counseling: I had a detailed discussion with the patient and/or guardian regarding: the cp historical points, exam findings, and any diagnostic results supporting the discharge/admit diagnosis, lab results, the need for outpatient follow up, to return to the emergency department if symptoms worsen or persist or if there are any questions or concerns that arise at home. 10/19 23:55 Order name: Urine Microscopic Only; Complete Time: 02:18 cp 10/20 02:18 Interpretation: Normal except: UWBC 10-20; URBC >50; REJI Cx 3+. cp 10/20 00:37 Order name: Urine Dipstick-Ancillary; Complete Time: 00:46 EDMS 10/20 00:47 Interpretation: Normal except: UGLUC 1+; UKET 1+; UBLD 3+; UPROT 3+; UNIT Positive; cp UESTR 3+. 10/19 23:55 Order name: Urine Dipstick-Ancillary (obtain specimen); Complete Time: 00:45 cp 10/19 23:55 Order name: Urine Test (obtain specimen); Complete Time: 00:45 cp 10/20 01:15 Order name: Urine Culture EDMS Administered Medications: 02:48 Drug: Rocephin (cefTRIAXone) 1 grams Route: IM; Site: left vastus lateralis; 02:48 Follow up: Response: No adverse reaction Disposition: 06:26 Co-signature as Attending Physician, Alex Moore MD I agree with the assessment and rt plan of care. Disposition Summary: 10/20/22 02:20 Discharge Ordered Location: Home cp Problem: new cp Symptoms: have improved cp Condition: Stable cp Diagnosis - UTI/ Urinary tract infection, site not specified cp Followup: cp - With: Private Physician - When: 2 - 3 days - Reason: Worsening of condition Discharge Instructions: - Discharge Summary Sheet cp - Urinary Tract Infection, Adult cp Forms: - Medication Reconciliation Form cp - Thank You Letter cp - Antibiotic Education cp - Prescription Opioid Use cp Prescriptions: - cefpodoxime 200 mg Oral Tablet - take 1 tablet by ORAL route every 12 hours for 7 days with food; 14 tablet; cp Refills: 0, Product Selection Permitted Signatures: Dispatcher [employer] EDMS Arnaldo Wright PA PA cp Wood, Tiffany tw Alex Moore MD MD rt Corrections: (The following items were deleted from the chart) 10/19 23:33 23:32 PSHx: None;
--- NOTE | 2022-10-20 02:21 | ER ---
Nurse's Notes [facility] Name: Inés Curry Age: 47 yrs Sex: Female : 1975 Arrival Date: 10/19/2022 Time: 23:27 Bed 6 Private MD: Diagnosis: UTI/ Urinary tract infection, site not specified Presentation: 10/19 23:29 Chief complaint: Patient states: "I have a UTI, I took a home test for UTI and it tw5 tested positive. It just really hurts.". Coronavirus screen: Vaccine status: Patient reports receiving the 2nd dose of the covid vaccine. [employer]. Ebola Screen: Patient negative for fever greater than or equal to 101.5 degrees Fahrenheit, and additional compatible Ebola Virus Disease symptoms Patient denies exposure to infectious person. Patient denies travel to an Ebola-affected area in the 21 days before illness onset. Initial Sepsis Screen: Does the patient meet any 2 criteria? HR > 90 bpm. Does the patient have a suspected source of infection? Yes: Dysuria/Frequency/Urgency/UTI. Risk Assessment: Do you want to hurt yourself or someone else? Patient reports no desire to harm self or others. Onset of symptoms was October 19, 2022. 23:29 Acuity: DOUGLAS 4 tw5 23:29 Method Of Arrival: Ambulatory tw5 Triage Assessment: 23:32 General: Appears in no apparent distress. Behavior is calm, cooperative, appropriate tw5 for age. Pain: Pain currently is 8 out of 10 on a pain scale. 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 - Social history:: Smoking status: Patient denies any tobacco usage or history of. Screenin/29 00:46 Abuse screen: Denies threats or abuse. Denies injuries from another. Nutritional as6 screening: No deficits noted. Tuberculosis screening: No symptoms or risk factors identified. Fall Risk None identified. Assessment: 00:45 General: Appears in no apparent distress. Behavior is calm, cooperative. Pain: as6 Complains of pain in suprapubic area. Neuro: Level of Consciousness is awake, alert, obeys commands. Respiratory: Respiratory effort is even, unlabored, labored. : Reports burning with urination, pain in suprapubic area urgency, urinary frequency. Vital Signs: 10/19 23:29 BP 147 / 82; Pulse 109; Resp 18; Temp 98; Pulse Ox 95% on R/A; Weight 54.43 kg; Height tw5 4 ft. 11 in. (149.86 cm); Pain 8/10; 10/20 00:45 BP 127 / 48; Pulse 93; Resp 16 S; Pulse Ox 94% on R/A; as6 02:49 BP 124 / 62; Pulse 87; Resp 15 S; Pulse Ox 94% on R/A; tw5 10/19 23:29 Body Mass Index 24.24 (54.43 kg, 149.86 cm) tw5 ED Course: 10/19 23:27 Patient arrived in ED. ja2 23:32 Triage completed. tw5 23:32 Arm band placed on. tw5 23:54 [facility] Wirght [facility] is [facility] cp 23:54 Alex Moore MD is Attending Physician. cp 10/20 00:45 Nicolas Swan, HAO is Primary Nurse. as6 00:46 Bed in low position. Call light in reach. Side rails up X 1. as6 02:49 No provider procedures requiring assistance completed. Patient did not have IV access tw5 during this emergency room visit. Administered Medications: 02:48 Drug: Rocephin (cefTRIAXone) 1 grams Route: IM; Site: left vastus lateralis; tw5 02:48 Follow up: Response: No adverse reaction tw5 Medication: 00:46 VIS not applicable for this client. as6 Outcome: 02:20 Discharge ordered by . cp 02:49 Discharged to home ambulatory. tw5 02:49 Condition: stable 02:49 Discharge instructions given to patient, Instructed on discharge instructions, follow up and referral plans. medication usage, Demonstrated understanding of instructions, follow-up care, medications, Prescriptions given X 1. 02:50 Patient left the ED. tw5 Signatures: Arnaldo Wright PA PA cp Alexander, Jessica ja2 Denise Harris tw5 Nicolas Swan RN RN as6 Corrections: (The following items were deleted from the chart) 10/19 23:33 23:32 PSHx: None; tw5 tw5
[2022-10-20] MEDS ORDERED: CEFTRIAXONE 1000 MG/VIAL ONE (02:41)
[2022-10-20] MEDS ORDERED: LIDOCAINE 1% MPF 2 ML AMPULE ONE (02:41)
[2022-10-20 03:19] VITALS: TEMP 98
[2022-10-20 03:20] VITALS: O2SAT 94
[2022-10-20 03:21] VITALS: BP 124/62
== END 2022-10-20 02:50 | disposition home or self-care (01) ==
LOC: ER 23:25
DX: N39.0 Urinary tract infection, site not specified (principal); F32.A Depression, unspecified
CPT/HCPCS: 81003; 81015; 87086; 87088; 96372; 99283

== ENCOUNTER 2023-06-05 17:56 | Emergency (ER) | payer OTHER ==
--- OUTSIDE RECORDS SUMMARY | 2023-06-05 17:59 | XMS REPORT | Continuity of Care Document ---
:1975 Author Organization [facility] t Address [address] [place] [id number] Care Team Providers Name Role Phone Parish TORRES, Catherine Lemus Primary Care Physician [phone] IMANI HERNDON Attending Clinician Unavailable PETERSON POWELL Attending Clinician Unavailable DAVE SHAIKH Attending Clinician Unavailable CATHERINE STOKES Attending Clinician Unavailable JENNIFER AGUAYO Attending Clinician Unavailable MONICA MCLAUGHLIN Attending Clinician Unavailable MD NORRIS Attending Clinician Unavailable CHAR LA Attending Clinician Unavailable LAB90 Attending Clinician Unavailable Peterson Smith Attending Clinician Catherine Stokes MD Attending Clinician [phone] Payers Payer Name Policy Type Policy Number Effective Date Expiration Date Cyndie menezes [employer]ET[employer] 2 [id number] 2021 00:00:00 Problems Condition Condition Condition Status Onset Resolution Last Treating Co mments Source Name Details Category Date Date Treatment Clinician Date Acute Acute Disease Active 2021-11 Angela cystitis cystitis 2-16 Seybol d without without 00:00: - hematuria hematuria 00 Exte rna l Urinary Urinary Disease Active 2021-11 Angela incontinen incontinen 2-16 Se ybold ce ce 00:00: - 00 Externa l Allergies Allergies Disease Active Harris sey 7-11 Seybold 00:00: - 00 Externa l Aching Aching Disease Active Angela headache headache 7-11 Seybol d 00:00: - 00 Externa l No known No known Disease Kelse y active active Seybold problems problems Allergies, Adverse Reactions, Alerts This patient has no known allergies or adverse reactions. Social History Social Habit Start Date Stop Date Quantity Comments Source Gender identity Angela eubanks - External Sexual orientation Angela Srinivasan - External Exposure to Not sure Angela delgado SARS-CoV-2 (event) History of Social 2021-12-30 2021-12-30 Angela Srinivasan - function 00:00:00 00:00:00 External Sex Ass[birth year] Harris Srinivasan - 00:00:00 00:00:00 External Smoking Status Start Date Stop Date Source Never smoked tobacco Angela cheatham - External Medications Ordered Filled Start Stop Current Ordering Indication Dosage Frequency Signature Comments Components Source Medication Medication Date Date Medication? Clinician (SIG) Name Name Montelukast Yes [id number] 10mg Take 1 Angela (SINGULAIR) 3-21 tablet (10 Se ybold 10 MG oral 00:00: mg total) - Tablet 00 by mouth Externa tablet nightly l Estradiol 1 Yes [id number] 1mg Take 1 Angela MG oral 2-28 tablet (1 Seybold Tablet 00:00: mg total) - 00 by mouth Externa daily l BUPROPION 2022-0 Yes Angela HCL SR 150 2-27 Seybold MG OR TB12 10:01: - 23 Externa l BUPROPION 2022-0 Yes Angela HCL SR 150 2-27 Seybold MG OR TB12 10:01: - 23 Externa l Oxybutynin 2022-0 Yes [id number] 10mg Take 1 Angela Chloride 10 2-27 tablet (10 Se ybold MG oral 00:00: mg total) - TABLET SR 00 by mouth [employer] a 24 HR daily l Oxybutynin 2022-0 Yes [id number] 10mg Take 1 Angela Chloride 10 2-27 tablet (10 Se ybold MG oral 00:00: mg total) - TABLET SR 00 by mouth [employer] a 24 HR daily l Oxybutynin 2022-0 Yes [id number] TAKE ONE Angela Chloride 10 2-03 (1) Seybold MG oral 00:00: TABLET(S) - TABLET SR 00 BY MOUTH [employer] a 24 HR ONCE A l DAY. Oxybutynin 2023-0 Yes [id number] TAKE ONE Angela Chloride 10 2-03 (1) Seybold MG oral 00:00: TABLET(S) - TABLET SR 00 BY MOUTH [employer] a 24 HR ONCE A l DAY. BUPROPION Yes Angela HCL SR 150 1-03 Seybold MG OR TB12 10:03: - 22 Externa l Oxybutynin Yes [id number] 10mg Take 1 Angela Chloride 10 1-03 tablet (10 Se ybold MG oral 00:00: mg total) - TABLET SR 00 by mouth [employer] a 24 HR daily l BUPROPION 2021-11 Yes Angela HCL SR 150 2-16 Seybold MG OR TB12 14:13: - 03 Externa l Ciprofloxac 2021-11- No [id number] 500mg Take 1 Angela in HCl 2-16 12-24 tablet Seybold (Cipro) 500 00:00: 05:59 (500 mg - MG oral 00 :00 total) by Externa Tablet mouth 2 l times daily for 7 days Lamotrigine 2021-11 Yes TAKE ONE Angela 25 MG oral 1-26 (1) Seybold Tablet 00:00: TABLET(S) - 00 BY MOUTH Externa ONCE A DAY l FOR 14 DAYS THEN INCREASE TO TWO (2) TABLETS A DAY. Lamotrigine 2021-11 Yes TAKE ONE Angela 25 MG oral 1-26 (1) Seybold Tablet 00:00: TABLET(S) - 00 BY MOUTH Externa ONCE A DAY l FOR 14 DAYS THEN INCREASE TO TWO (2) TABLETS A DAY. Lamotrigine 2021-11 Yes TAKE ONE Angela 25 MG oral 1-26 (1) Seybold Tablet 00:00: TABLET(S) - 00 BY MOUTH Externa ONCE A DAY l FOR 14 DAYS THEN INCREASE TO TWO (2) TABLETS A DAY. Estradiol 2021-11 Yes [id number] 1mg Take 1 Angela MG oral 0-11 tablet (1 Seybold Tablet 00:00: mg total) - 00 by mouth Externa daily l Estradiol 2021-11 Yes [id number] 1mg Take 1 Angela MG oral 0-11 tablet (1 Seybold Tablet 00:00: mg total) - 00 by mouth Externa daily l Estradiol 2021-11 Yes [id number] 1mg Take 1 Angela MG oral 0-11 tablet (1 Seybold Tablet 00:00: mg total) - 00 by mouth Externa daily l Montelukast Yes [id number] 10mg Take 1 Angela (Singulair) 8-15 tablet (10 Se ybold 10 MG oral 00:00: mg total) - Tablet 00 by mouth Externa tablet nightly l Montelukast Yes [id number] 10mg Take 1 Angela (Singulair) 8-15 tablet (10 Se ybold 10 MG oral 00:00: mg total) - Tablet 00 by mouth Externa tablet nightly l Montelukast Yes [id number] 10mg Take 1 Angela (Singulair) 8-15 tablet (10 Se ybold 10 MG oral 00:00: mg total) - Tablet 00 by mouth Externa tablet nightly l Nitrofurant Yes [id number] 100mg Take 1 Angela oin Monohyd 8-04 capsule Seybo ld Macro 00:00: (100 mg - (Macrobid) 00 total) by Exte rna 100 MG oral mouth 2 l Capsule times daily Nitrofurant Yes [id number] 100mg Take 1 Angela oin Monohyd 8-04 capsule Seybo ld Macro 00:00: (100 mg - (Macrobid) 00 total) by Exte rna 100 MG oral mouth 2 l Capsule times daily Nitrofurant Yes [id number] 100mg Take 1 Angela oin Monohyd 8-04 capsule Seybo ld Macro 00:00: (100 mg - (Macrobid) 00 total) by Exte rna 100 MG oral mouth 2 l Capsule times daily Nitrofurant 0 Yes [id number] 100mg Take 1 Angela oin Monohyd 8-04 capsule Seybo ld Macro 00:00: (100 mg - (Macrobid) 00 total) by Exte rna 100 MG oral mouth 2 l Capsule times daily Clobetasol Yes [id number] Apply 1 Angela Propionate 7-11 applicatio Sey bold 0.05 % 00:00: n - apply 00 topically Externa externally 2 times l Cream daily Meloxicam Yes [id number] 15mg Take 1 K elsey 15 MG oral 7-11 tablet (15 Sey bold Tablet 00:00: mg total) - 00 by mouth Externa daily l Clobetasol 2021-0 Yes [id number] Apply 1 Angela Propionate 7-11 applicatio Sey bold 0.05 % 00:00: n - apply 00 topically Externa externally 2 times l Cream daily Meloxicam 2021-0 Yes [id number] 15mg Take 1 K elsey 15 MG oral 7-11 tablet (15 Sey bold Tablet 00:00: mg total) - 00 by mouth Externa daily l Clobetasol 2021-0 Yes [id number] Apply 1 Angela Propionate 7-11 applicatio Sey bold 0.05 % 00:00: n - apply 00 topically Externa externally 2 times l Cream daily Meloxicam 2021-0 Yes [id number] 15mg Take 1 K elsey 15 MG oral 7-11 tablet (15 Sey bold Tablet 00:00: mg total) - 00 by mouth Externa daily l Clobetasol 2021-0 Yes [id number] Apply 1 Angela Propionate 7-11 applicatio Sey bold 0.05 % 00:00: n - apply 00 topically Externa externally 2 times l Cream daily Meloxicam 2021-0 Yes [id number] 15mg Take 1 K elsey 15 MG oral 7-11 tablet (15 Sey bold Tablet 00:00: mg total) - 00 by mouth Externa daily l Gabapentin 2022-0 Yes Angela 100 MG oral 3-03 Seybold Capsule 00:00: - 00 Externa l Gabapentin 2022-0 Yes Angela 100 MG oral 3-03 Seybold Capsule 00:00: - 00 Externa l Gabapentin 2022-0 Yes Angela 100 MG oral 3-03 Seybold Capsule 00:00: - 00 Externa l Gabapentin 2022-0 Yes Angela 100 MG oral 3-03 Seybold Capsule 00:00: - 00 Externa l BUPROPION 2022-0 Yes Angela HCL SR 150 2-08 Seybold MG OR TB12 15:33: 02 Omeprazole 2022-0 Yes [id number] 40mg Take 1 K elsey 40 MG oral 2-08 capsule Seybol d Delayed 00:00: (40 mg - Release 00 total) by Externa Capsule mouth l daily Omeprazole 2022-0 Yes [id number] 40mg Take 1 K elsey 40 MG oral 2-08 capsule Seybol d Delayed 00:00: (40 mg Release 00 total) by Capsule mouth daily Omeprazole 2021-0 Yes [id number] 40mg Take 1 K elsey 40 MG oral 2-08 capsule Seybol d Delayed 00:00: (40 mg - Release 00 total) by Externa Capsule mouth l daily Omeprazole 2021-0 Yes [id number] 40mg Take 1 K elsey 40 MG oral 2-08 capsule Seybol d Delayed 00:00: (40 mg - Release total) by Externa Capsule mouth l daily Omeprazole 2021-0 Yes [id number] 40mg Take 1 K elsey 40 MG oral 2-08 capsule Seybol d Delayed 00:00: (40 mg - Release total) by Externa Capsule mouth l daily Quetiapine 2020-0 Yes Angela Fumarate 25 8-09 Seybold MG oral 00:00: - Tablet 00 Externa l Quetiapine 2020-0 Yes Angela Fumarate 25 8-09 Seybold MG oral 00:00: - Tablet 00 Externa l Quetiapine 2020-0 Yes Angela Fumarate 25 8-09 Seybold MG oral 00:00: - Tablet 00 Externa l Quetiapine 2020-0 Yes Angela Fumarate 25 8-09 Seybold MG oral 00:00: - Tablet 00 Externa l Immunizations Ordered Immunization Filled Immunization Date Status Commen ts Source Name Name Covid-19 Vaccine 2021-03-01 Completed Angela day ([employer]), Mrna-lnp, 00:00:00 - Ext ernal [employer], Pf, 30mcg/0.3ml,IM Covid-19 Vaccine 2021-03-01 Completed Angela day ([employer]), Mrna-lnp, 00:00:00 [employer], Pf, 30mcg/0.3ml,IM Covid-19 Vaccine 2021-03-01 Completed Angela day ([employer]), Mrna-lnp, 00:00:00 - Ext ernal [employer], Pf, 30mcg/0.3ml,IM Covid-19 Vaccine 2021-03-01 Completed Angela day ([employer]), Mrna-lnp, 00:00:00 - Ext ernal [employer], Pf, 30mcg/0.3ml,IM Covid-19 Vaccine 2021-03-01 Completed Angela Agee eybold ([employer]), Mrna-lnp, 00:00:00 - Ext ernal [employer], Pf, 30mcg/0.3ml,IM Covid-19 Vaccine 2021-02-08 Completed Angela Agee eybold ([employer]), Mrna-lnp, 00:00:00 - Ext ernal [employer], Pf, 30mcg/0.3ml,IM Covid-19 Vaccine 2021-02-08 Completed Angela Agee eybold ([employer]), Mrna-lnp, 00:00:00 [employer], Pf, 30mcg/0.3ml,IM Covid-19 Vaccine 2021-02-08 Completed Angela Agee eybold ([employer]), Mrna-lnp, 00:00:00 - Ext ernal [employer], Pf, 30mcg/0.3ml,IM Covid-19 Vaccine 2021-02-08 Completed Angela Agee eybold ([employer]), Mrna-lnp, 00:00:00 - Ext ernal [employer], Pf, 30mcg/0.3ml,IM Covid-19 Vaccine 2021-02-08 Completed Angela felizbold ([employer]), Mrna-lnp, 00:00:00 - Ext ernal [employer], Pf, 30mcg/0.3ml,IM Influenza Virus 2011-09-18 Completed Angela Se ybold Vaccine, Whole Virus 00:00:00 - Ex ternal Influenza Virus 2011-09-18 Completed Angela Se ybold Vaccine, age 6 00:00:00 - External months and up Influenza Virus 2011-09-18 Completed Angela Se ybold Vaccine, Whole Virus 00:00:00 - Ex ternal Influenza Virus 2011-09-18 Completed Angela Se ybold Vaccine, age 6 00:00:00 - External months and up Influenza Virus 2011-09-18 Completed Angela Se ybold Vaccine, Whole Virus 00:00:00 - Ex ternal Influenza Virus 2011-09-18 Completed Angela Se ybold Vaccine, age 6 00:00:00 - External months and up Influenza Virus 2011-09-18 Completed Angela Se ybold Vaccine, Whole Virus 00:00:00 - Ex ternal Influenza Virus 2011-09-18 Completed Angela ebuanks Vaccine, age 6 00:00:00 - External months and up Vital Signs Vital Name Observation Time Observation Value Comments Source Systolic blood 2023-01-18 16:00:00 119 mm[Hg] Angela ybold - pressure External Diastolic blood 2023-01-18 16:00:00 80 mm[Hg] Harrisse y Seybold - pressure External Heart rate 2023-01-18 16:00:00 75 /min Angela S eybold - External Body temperature 2023-01-18 16:00:00 36.67 Yvonne Julianna ey Seybold - External Respiratory rate 2023-01-18 16:00:00 16 /min Julianna ey Seybold - External Body height 2023-01-18 16:00:00 149.9 cm Angela S eybold - External Body weight 2023-01-18 16:00:00 56.7 kg Angela S eybold - External BMI 2023-01-18 16:00:00 25.25 kg/m2 Angela S eybold - External Oxygen saturation in 2023-01-18 16:00:00 98 /min Angela Srinivasan - Arterial blood by External Pulse oximetry Systolic blood 2022-11-24 16:05:00 119 mm[Hg] Angela Seybold - pressure External Diastolic blood 2022-11-24 16:05:00 88 mm[Hg] Harrisse y Seybold - pressure External Heart rate 2022-11-24 16:05:00 88 /min Angela S eybold - External Body temperature 2022-11-24 16:04:00 36.72 Yvonne Julianna ey Seybold - External Respiratory rate 2022-11-24 16:04:00 16 /min Julianna ey Seybold - External Body height 2022-11-24 16:04:00 149.9 cm Angela S eybold - External Body weight 2022-11-24 16:04:00 56.7 kg Angela S eybold - External BMI 2022-11-24 16:04:00 25.25 kg/m2 Angela S eybold - External Systolic blood 2022-11-06 20:10:00 126 mm[Hg] Angela Seybold - pressure External Diastolic blood 2022-11-06 20:10:00 80 mm[Hg] Harrisse y Seybold - pressure External Heart rate 2022-11-06 20:10:00 122 /min Angela Agee eybold - External Body temperature 2022-11-06 20:10:00 36.06 Yvonne Julianna ey Seybold - External Respiratory rate 2022-11-06 20:10:00 14 /min Julianna ey Seybold - External Body height 2022-11-06 20:10:00 149.9 cm Angela S eybold - External Body weight 2022-11-06 20:10:00 56.7 kg Angela S eybold - External BMI 2022-11-06 20:10:00 25.25 kg/m2 Angela S eybold - External Systolic blood 2021-12-30 21:26:00 122 mm[Hg] Angela Seybold pressure Diastolic blood 2021-12-30 21:26:00 88 mm[Hg] Kelse y Seybold pressure Heart rate 2021-12-30 21:26:00 98 /min Angela Agee eybold Body temperature 2021-12-30 21:26:00 36.28 Yvonne Julianna ey Seybold Respiratory rate 2021-12-30 21:26:00 16 /min Julianna feliz Seybold Body height 2021-12-30 21:26:00 149.9 cm Angela Agee eybold Body weight 2021-12-30 21:26:00 56.7 kg Angela Agee eybold BMI 2021-12-30 21:26:00 25.25 kg/m2 Angela Agee eybold Procedures Procedure Date / Time Performed Performing Clinician [facility] e US URINE CAPACITY 2022-11-24 16:26:00 Monica Mclaughlin - MEASURE External URINALYSIS NONAUTO W/O 2022-11-06 20:30:34 Char La Seybold - SCOPE External Encounters Start End Encounter Admission Attending Care Care Encounter Source Date/Time Date/Time Type Type Clinicians Facility Department ID 2023-06-05 2023-06-05 Outpatient ANGELA HERNDON [id number] Angela 11:00:00 11:00:00 JAYESON Seybol d 2023-02-08 2023-02-08 Outpatient ANGELA POWELL [id number] Angela 00:00:00 00:00:00 PETERSON Seybol d 2023-01-18 2023-01-18 Outpatient ANGELA SHAIKH [id number] Angela 11:00:00 11:00:00 DAVE Seyb old 2023-01-15 2023-01-15 Outpatient ANGELA STOKES [id number] Angela 00:00:00 00:00:00 CATHERINE Seybol d 2023-01-07 2023-01-07 Outpatient ANGELA AGUAYO [id number] Angela 15:20:00 15:20:00 JENNIFER Seybol d 2022-12-25 2022-12-25 Outpatient MONICA MCLAUGHLIN [id number] Angela 00:00:00 00:00:00 Seybol d 2022-12-23 2022-12-23 Outpatient MONICA MCLAUGHLIN [id number] Angela 00:00:00 00:00:00 Seybol d 2022-12-02 2022-12-02 Outpatient ROSANA ALCANTAR [id number] Angela 00:00:00 00:00:00 MD ELIZABETH Seybol d 2022-11-24 2022-11-24 Outpatient MONICA MCLAUGHLIN [id number] Angela 10:20:00 10:20:00 Seybol d 2022-11-12 2022-11-12 Outpatient PREANGELA LARA [id number] Angela 00:00:00 00:00:00 CHAR Seybol d 2022-11-12 2022-11-12 Outpatient PREANGELA LARA [id number] Angela 00:00:00 00:00:00 CHAR Seybol d 2022-11-11 2022-11-11 Outpatient PREANGELA LARA [id number] Angela 00:00:00 00:00:00 CHAR Seybol d 2022-11-06 2022-11-06 Outpatient PREANGELA LARA [id number] Angela 14:15:00 14:15:00 CHAR Seybol d 2022-10-23 2022-10-23 Outpatient LAB90 ANGELA ALCANTAR [id number] Angela 09:20:00 09:20:00 Seybol d 2022-10-22 2022-10-22 Outpatient SHERRY ANGELA ALCANTAR [id number] Angela 00:00:00 00:00:00 PETERSON Seybol d 2022-07-31 2022-07-31 Outpatient ANGELA STOKES [id number] Angela 00:00:00 00:00:00 CATHERINE Seybol d 2022-07-22 2022-07-22 Outpatient ANGELA POWELL [id number] Angela 00:00:00 00:00:00 PETERSON Seybol d 2022-07-16 2022-07-16 Outpatient ANGELA POWELL [id number] Angela 00:00:00 00:00:00 PETERSON Seybol d 2022-07-06 2022-07-06 Outpatient LAB90 ANGELA ALCANTAR [id number] Angela 12:00:00 12:00:00 Seybol d 2022-07-06 2022-07-06 Office Alex Powell [id number] Angela 11:00:00 11:30:00 Visit Peterson Millard [id number] Se ybold [id number] 2022-07-06 2022-07-06 Outpatient ANGELA POWELL [id number] Angela 00:00:00 00:00:00 PETERSON Seybol d 2022-06-25 2022-06-25 Outpatient LAB90 ANGELA ALCANTAR [id number] Angela 10:15:00 10:15:00 Seybol d 2022-06-25 2022-06-25 Office Alex Powell [id number] Angela 09:30:00 10:00:00 Visit Petersonissa Millard [id number] Se ybold [id number] 2022-06-25 2022-06-25 Outpatient ANGELA POWELL ANGELA [id number] Angela 00:00:00 00:00:00 PETERSON Seybol d 2022-06-25 2022-06-25 Outpatient ANGELA POWELL ANGELA [id number] Angela 00:00:00 00:00:00 PETERSON Seybol d 2022-06-01 2022-06-01 Outpatient LAB90 ANGELA ALCANTAR [id number] Angela 13:55:00 13:55:00 Seybol d 2022-06-01 2022-06-01 Office Sherry Johnson [id number] Angela 13:00:00 13:30:00 Visit Peterson Millard [id number] Se raimundo [id number] 2022-04-14 2022-04-14 Outpatient ANGELA STOKES [id number] Angela 00:00:00 00:00:00 CATHERINE Seybol d 2022-04-14 2022-04-14 Outpatient ANGELA STOKES [id number] Angela 00:00:00 00:00:00 CATHERINE Seybol d 2021-12-31 2021-12-31 Outpatient LAB90 ANGELA ALCANTAR [id number] Angela 09:20:00 09:20:00 Seybol d 2021-12-31 2021-12-31 Outpatient ANGELA STOKES [id number] Angela 00:00:00 00:00:00 CATHERINE Seybol d 2021-12-30 2021-12-30 Outpatient LAB90 ANGELA ALCANTAR [id number] Angela 16:45:00 16:45:00 Seybol d 2021-12-30 2021-12-30 Office Alex Stokes [id number] Angela 16:00:00 16:30:00 Visit Catherine Millard [id number] Se ybold Somogyi [id number] Results Test Description Test Time Test Comments Results Result Comments Source US URINE CAPACITY MEASURE 2022-11-24 16:26:00 Test Item Value Reference Range Interpretation Comme nts RESIDUAL URINE VOLUME (test code = 5061) cc Lab Interpretation (test code = 44972-1) Normal Angela Srinivasan - ExternalURINALYSIS NONAUTO W/O [id number] 20:31:00 Test Item Value Reference Range Interpretation Comments UD KETONES (test code = NEG 5-160 514036) UD GLUCOSE (test code = NEG 100-2000 531968) UD PROTEIN (test code = NEG Trace - 2000 mg/dL 126799) UD LEUKOCYTES (test MOD Trace - Large @ 2 code = 202397) min. UD NITRITE (test code = NEG Neg. - Pos. @ 60 641490) sec. UD UROBILINOGEN (test 0.2 mg/dL 0.2-8 code = 906562) UD PH (test code = See_Comment [Automat ed 300483) message] The sy stem which generated this result transmitted reference range : 5.0 - 8.5 @ 60 sec.. The refer ence range was not u sed to interpret th is result as normal/abnormal . UD BLOOD (test code = LARGE Neg. - Large @ 60 696021) sec. UD SPECIFIC GRAVITY See_Comment [Automa ludmila (test code = 226024) message ] The system which generated this result transmitted reference range : 1.000 - 1.030 @ 45 sec.. The refer ence range was not u sed to interpret th is result as normal/abnormal . UD BILIRUBIN (test code NEG Neg. - Large @ 45 = 965532) sec. Lab Interpretation Abnormal (test code = 89896-0) Angela Srinivasan - External
--- NOTE | 2023-06-05 18:38 | RAD REPORT ---
EXAM DESCRIPTION: RAD - Chest Single View - 06/05/2023 6:31 pm CLINICAL HISTORY: CHEST PAIN Chest pain. COMPARISON: No comparisons FINDINGS: Portable technique limits examination quality. The lungs are grossly clear. The heart is normal in size. No displaced fractures. IMPRESSION: No acute intrathoracic process suspected.
[2023-06-05 19:06] LABS: Absolute Lymphocytes (CBC) 1.5 K/uL (0.7-4.9); Hematocrit 42.5 % (36.0-45.0); Lymphocytes % 22.8 % (15.3-44.8); MCV 88.8 fL (80-100); MPV 8.9 fL (7.6-11.3); RBC Red Blood Cell Count 4.78 M/uL (3.86-4.86)
[2023-06-05 20:45] LABS: Albumin 3.5 g/dL (3.4-5.0); Bilirubin Total 0.3 mg/dL (0.2-1.0); Potassium 3.6 mEq/L (3.5-5.1); Protein, Total 6.9 g/dL (6.4-8.2); Troponin High Sensitivity 4.3 pg/mL (<58.9)
--- NOTE | 2023-06-05 21:08 | ER ---
Nurse's Notes [facility] Name: Inés Curry Age: 47 yrs Sex: Female : 1975 Arrival Date: 06/05/2023 Time: 17:56 Bed 13 Private MD: Diagnosis: Gastro-esophageal reflux disease without esophagitis Presentation: 06/05 18:16 Chief complaint: Epigastric and upper back pain and nausea x 3 days. Denies V/D/fever. hb Coronavirus screen: At this time, the client does not indicate any symptoms associated with coronavirus-19. Ebola Screen: No symptoms or risks identified at this time. Initial Sepsis Screen: Does the patient meet any 2 criteria? No. Patient's initial sepsis screen is negative. Does the patient have a suspected source of infection? No. Patient's initial sepsis screen is negative. Risk Assessment: Do you want to hurt yourself or someone else? Patient reports no desire to harm self or others. Onset of symptoms was June 02, 2023. 18:16 Method Of Arrival: Ambulatory hb 18:16 Acuity: DOUGLAS 3 hb Historical: - Allergies: 18:18 No Known Allergies; hb - Home Meds: 18:18 lamotrigine Oral [Active]; Zyrtec 10 mg oral tablet,chewable [Active]; Wellbutrin Oral hb [Active]; - PMHx: 18:18 allergies; Depression; irregular heart beat; Bladder Spasms; hb - PSHx: 18:18 Cholecystectomy; jaw surgery; Total abdominal hysterectomy; Tummy tuck; hb - Immunization history:: Adult Immunizations up to date. - Social history:: Smoking status: Patient denies any tobacco usage or history of. Screenin:15 [facility] ED Fall Risk Assessment (Adult) History of falling in the last 3 months, ko1 including since admission No falls in past 3 months (0 pts) Confusion or Disorientation No (0 pts) Intoxicated or Sedated No (0 pts) Impaired Gait No (0 pts) Mobility Assist Device Used No (0 pt) Altered Elimination No (0 pt) Score/Fall Risk Level 0 - 2 = Low Risk Oriented to surroundings, Maintained a safe environment, Educated pt \T\ family on fall prevention, incl call for assistance when getting out of bed, Assessed \T\ reinforced patient's understanding of fall precautions, Provided non-skid footwear, Hourly rounding (assess needs \T\ fall precautionary measures) done, Used ambulatory aids as needed (educated on \T\ assisted with), Used gait belt as appropriate. Abuse screen: Denies threats or abuse. Denies injuries from another. Nutritional screening: No deficits noted. Tuberculosis screening: No symptoms or risk factors identified. Assessment: 18:15 General: Appears in no apparent distress. comfortable, Behavior is calm, cooperative, ko1 appropriate for age. Pain:. Pain: Complains of pain in abdomen. Neuro: No deficits noted. Cardiovascular: No deficits noted. Respiratory: No deficits noted. GI: Bowel sounds present X 4 quads. Abd is soft and non tender X 4 quads. : No deficits noted. EENT: No deficits noted. Derm: No deficits noted. Musculoskeletal: No deficits noted. 19:00 Reassessment: No changes from previously documented assessment. Patient and/or family vc1 updated on plan of care and expected duration. Pain level reassessed. Patient is alert, oriented x 3, equal unlabored respirations, skin warm/dry/pink. 20:00 Reassessment: No changes from previously documented assessment. Patient and/or family vc1 updated on plan of care and expected duration. Pain level reassessed. Patient is alert, oriented x 3, equal unlabored respirations, skin warm/dry/pink. 21:00 Reassessment: Patient and/or family updated on plan of care and expected duration. Pain vc1 level reassessed. Patient is alert, oriented x 3, equal unlabored respirations, skin warm/dry/pink. Patient states symptoms have improved. Vital Signs: 18:15 BP 110 / 77; Pulse 75; Resp 18; Temp 98; Pulse Ox 96% on R/A; ko1 18:16 BP 124 / 83; Pulse 86; Resp 16; Temp 98.3(O); Pulse Ox 100% on R/A; Weight 56.7 kg; hb Height 4 ft. 11 in. ; Pain 2/10; 19:00 BP 110 / 77; Pulse 75; Resp 16; Pulse Ox 94% ; vc1 20:00 BP 123 / 85; Pulse 75; Resp 15; Pulse Ox 97% ; vc1 21:00 BP 118 / 73; Pulse 74; Resp 15; Pulse Ox 96% ; vc1 18:16 Body Mass Index 25.25 (56.70 kg, 149.86 cm) hb 18:16 Pain Scale: Adult hb ED Course: 18:00 Patient arrived in ED. kj1 18:02 Dodie Millard FNP-C is PHCP. kb 18:02 Arnaldo Morgan MD is Attending Physician. kb 18:15 Patient has correct armband on for positive identification. Call light in reach. Side ko1 rails up X 1. Provided Education on: NA. Pulse ox on. NIBP on. 18:16 Brit West, RN is Primary Nurse. ko1 18:18 Triage completed. hb 18:19 Arm band placed on. hb 18:32 Chest Single View XRAY In Process Unspecified. EDMS 18:48 Troponin High Sensitivity Sent. ko1 18:48 CMP Sent. ko1 18:48 Lipase Sent. ko1 18:56 Inserted saline lock: 22 gauge in right upper arm, using aseptic technique. Blood hb collected. 18:58 CBC with Diff Sent. ko1 18:58 CMP Sent. ko1 18:58 Lipase Sent. ko1 18:58 Troponin High Sensitivity Sent. ko1 19:00 Report received from HAO Perea. vc1 20:06 PHCP role handed off by Dodie Millard FNP-C kb 20:06 Linette Stephens PA-C is PHCP. kb 21:07 Noe Rubalcava MD is Referral Physician. sb4 21:54 No provider procedures requiring assistance completed. IV discontinued, intact, vc1 bleeding controlled, No redness/swelling at site. Pressure dressing applied. Administered Medications: No medications were administered Medication: 19:50 VIS not applicable for this client. vc1 Outcome: 21:08 Discharge ordered by . sb4 21:54 Discharged to home ambulatory, with significant other. vc1 21:54 Condition: good 21:54 Discharge instructions given to patient, Instructed on discharge instructions, follow up and referral plans. medication usage, Demonstrated understanding of instructions, follow-up care, medications, Prescriptions given X 1. 21:54 Patient left the ED. vc1 Signatures: Dispatcher [employer] EDMS Dodie Millard FNP-C FNP-Brianna Phipps RN RN Vilma Millard kj1 Maren Ruelas RN RN vc1 Brit West, HAO RN ko1 Linette Stephens PA-C PA-C sb4 Corrections: (The following items were deleted from the chart) 20:08 20:06 Reassessment: juan c irizarry
--- NOTE | 2023-06-05 21:08 | EDPHYS ---
Physician Documentation [facility] Name: Inés Curry Age: 47 yrs Sex: Female : 1975 Arrival Date: 06/05/2023 Time: 17:56 Bed 13 Private MD: ED Physician Arnaldo Morgan HPI: 06/05 19:16 This 47 yrs old Female presents to ER via Ambulatory with complaints of Abdominal kb Problem, Back Pain. 19:16 The patient presents with abdominal pain in the upper abdomen. Onset: The kb symptoms/episode began/occurred 3 day(s) ago. The symptoms radiate to back, the left flank. Associated signs and symptoms: Pertinent positives: nausea, Pertinent negatives: fever. The symptoms are described as constant. Modifying factors: The symptoms are alleviated by nothing, the symptoms are aggravated by nothing. Severity of pain: At its worst the pain was mild moderate in the emergency department the pain has resolved. The patient has not experienced similar symptoms in the past. The patient has not recently seen a physician. Pt reports pain to left flank, upper back and epigastric area that started 3 days ago. Reports some nausea as well. Denies pain at this time and has no abd tenderness or CVA tendernes. Historical: - Allergies: 18:18 No Known Allergies; hb - Home Meds: 18:18 lamotrigine Oral [Active]; Zyrtec 10 mg oral tablet,chewable [Active]; Wellbutrin Oral hb [Active]; - PMHx: 18:18 allergies; Depression; irregular heart beat; Bladder Spasms; hb - PSHx: 18:18 Cholecystectomy; jaw surgery; Total abdominal hysterectomy; Tummy tuck; hb - Immunization history:: Adult Immunizations up to date. - Social history:: Smoking status: Patient denies any tobacco usage or history of. ROS: 19:16 Constitutional: Negative for fever, chills, and weight loss. kb 19:16 Abdomen/GI: Positive for abdominal pain, nausea, Negative for vomiting, diarrhea. 19:16 Back: Positive for of the left flank. 19:16 All other systems are negative. Exam: 19:16 Constitutional: This is a well developed, well nourished patient who is awake, alert, kb and in no acute distress. Head/Face: Normocephalic, atraumatic. ENT: Moist Mucous membranes Cardiovascular: Regular rate and rhythm with a normal S1 and S2. No gallops, murmurs, or rubs. No pulse deficits. Respiratory: Respirations even and unlabored. No increased work of breathing. Talking in full sentences Abdomen/GI: Soft, non-tender. No distention Back: No spinal tenderness. No costovertebral tenderness. Full range of motion. Skin: Warm, dry with normal turgor. Normal color. MS/ Extremity: Pulses equal, no cyanosis. Neurovascular intact. Full, normal range of motion. Neuro: Awake and alert, GCS 15, oriented to person, place, time, and situation. Moves all extremities. Normal gait. 19:19 ECG was reviewed by the Attending Physician. kb Vital Signs: 18:15 BP 110 / 77; Pulse 75; Resp 18; Temp 98; Pulse Ox 96% on R/A; ko1 18:16 BP 124 / 83; Pulse 86; Resp 16; Temp 98.3(O); Pulse Ox 100% on R/A; Weight 56.7 kg; hb Height 4 ft. 11 in. ; Pain 2/10; 19:00 BP 110 / 77; Pulse 75; Resp 16; Pulse Ox 94% ; vc1 20:00 BP 123 / 85; Pulse 75; Resp 15; Pulse Ox 97% ; vc1 21:00 BP 118 / 73; Pulse 74; Resp 15; Pulse Ox 96% ; vc1 18:16 Body Mass Index 25.25 (56.70 kg, 149.86 cm) hb 18:16 Pain Scale: Adult hb MDM: 18:02 Patient medically screened. kb 19:16 Data reviewed: vital signs, nurses notes. kb 19:18 Differential diagnosis: gastritis, gastroesophageal reflux disease, myocardia ischemia kb or infarction, non-specific abd pain, pancreatitis, Pyelonephritis, urinary tract infection. 20:06 Transition of care: After a detail discussion of the patient's case, care is kb transferred to Linette Stephens PA-C. 20:15 Transition of care: Care assumed from Dodie PEREZ. 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 06/05 18:07 Order name: CBC with Diff; Complete Time: 19:19 kb 06/05 18:07 Order name: CMP; Complete Time: 20:52 kb 06/05 18:07 Order name: Lipase; Complete Time: 20:52 kb 06/05 18:07 Order name: Troponin High Sensitivity; Complete Time: 20:52 kb 06/05 18:07 Order name: Chest Single View XRAY; Complete Time: 18:41 kb 06/05 18:07 Order name: EKG; Complete Time: 18:08 kb 06/05 18:07 Order name: IV Saline Lock; Complete Time: 18:58 kb 06/05 18:07 Order name: Labs collected and sent; Complete Time: 18:58 kb 06/05 18:07 Order name: EKG - Nurse/Tech; Complete Time: 19:17 kb 06/05 18:57 Order name: Labs - recollect needed: Green top- hemolyzed; Complete Time: 20:05 mc5 EC:19 Rate is 71 beats/min. Rhythm is regular. QRS [place] is Normal. MA interval is normal at kb 134 msec. QRS interval is normal at 96 msec. QT interval is normal at 439 msec. Administered Medications: No medications were administered Disposition Summary: 06/05/23 21:08 Discharge Ordered Location: Home sb4 Problem: new sb4 Symptoms: have improved sb4 Condition: Stable sb4 Diagnosis - Gastro-esophageal reflux disease without esophagitis sb4 Followup: sb4 - With: Noe Rubalcava MD - When: As needed - Reason: Further diagnostic work-up, Recheck today's complaints, Re-evaluation by your physician Discharge Instructions: - Discharge Summary Sheet sb4 - Food Choices for Gastroesophageal Reflux Disease, Adult sb4 - Gastroesophageal Reflux Disease, Adult sb4 Forms: - Medication Reconciliation Form sb4 - Thank You Letter sb4 - Antibiotic Education sb4 - Prescription Opioid Use sb4 - Patient Portal Instructions sb4 Prescriptions: - Protonix 40 mg Oral Tablet - take 1 tablet by ORAL route once daily; 30 tablet; Refills: 0, Product sb4 Selection Permitted Signatures: Dispatcher [employer] Dodie eMna, SUPPLY CHAIN INTERN-C SUPPLY CHAIN INTERN-Thomasb Brianna Beavers RN RN Linette Pollock, PA-C PA-C sb4 [place] mc5
[2023-06-05 22:38] VITALS: TEMP 98.3
[2023-06-05 22:46] VITALS: BP 118/73; O2SAT 96
--- NOTE | 2023-06-07 11:47 | EKG ---
Test Date: 2023-06-05 Test Time: 19:14:10 Suction Roller: VIET MEASUREMENT RESULTS: Intervals: Rate: 71 GA: 134 QRSD: 96 QT: 404 QTc: 439 [place]: P: 47 GA: 134 QRS: 43 T: 12 INTERPRETIVE STATEMENTS: Normal sinus rhythm T wave abnormality, consider anterior ischemia Abnormal ECG Compared to ECG 04/29/2019 22:36:59 T-wave abnormality now present Sinus tachycardia no longer present ST (T wave) deviation no longer present Possible ischemia still present Electronically Signed On 06-07-23 11:44:40 CDT by Kevin Pandya
== END 2023-06-05 21:54 | disposition home or self-care (01) ==
LOC: ER 17:56
DX: K21.9 Gastro-esophageal reflux disease without esophagitis (principal)
CPT/HCPCS: 36415; 71045; 80053; 83690; 84484; 85025; 93005; 99284

== ENCOUNTER 2024-08-16 20:14 | Emergency (ER) | payer OTHER ==
--- OUTSIDE RECORDS SUMMARY | 2024-08-16 20:17 | XMS REPORT | Continuity of Care Document ---
Author Name Unknown Address [address] [facility] [address] [place] [address] [facility] Address [address] [facility] [facility] [address] [place] [address] Care Team Providers Care Emt Driver Name Role Phone Divya TORRES, Catherine Lemus Primary Care Physician LAB90 Attending Clinician Unavailable CELIA KIM Attending Clinician Unavailable CHAR LA Attending Clinician Unavailable PETERSON POWELL Attending Clinician Unavailable CATHERINE STOKES Attending Clinician UnaDAVE Yanez Attending Clinician Unavailable IMANI HERNDON Attending Clinician Unavailable JENNIFER AGUAYO Attending Clinician UnavailMONICA Phipps Attending Clinician Unavailable MD NORRIS Attending Clinician Unavailab Peterson Butt Attending Clinician [phone] Catherine Stokes MD Attending Clinician [phone] Payers Payer Name Policy Type Policy Number Effective Date Expirati on Date Source [employer] 2 [id number] 2021 00:00:00 Problems Condition Name Condition Details Condition Category Status Onset Date Resolution Date Last Treatment Date Treating Clinician Comments Source Acute cystitis without hematuria Acute cystitis without hematuria Disease Active 2021-11 00:00: 00 Angela Srinivasan - Externa l Urinary incontinen ce Urinary incontinen ce Disease Active 2021-11 00:00: 00 Angela Srinivasan - Externa l Allergies Allergies Disease Active 06-01 00:00: 00 Angela Srinivasan - Externa l Aching headache Aching headache Disease Active 7-11 00:00: 00 Angela Tellescrislinden Trevon Externa l No known active problems No known active problems Disease Angela Srinivasan Social History Social Habit Start Date Stop Date Quantity Comments Source Gender identity Julianna Srinivasan - External Sexual orientation Alden Srinivasan - External ASSERTION Not Angela Srinivasan - External Exposure to SARS-CoV-2 (event) Not sure Angela eubanks History of Social function 2023-01-18 00:00:00 2023-01-18 00:00:00 Angela Srinivasan - External Sex 2021-02-18 17:20:04 2021-02-18 17:20:04 Female (finding) Angela Srinivasan - External Sex assigned at 1975 00:00:00 1975 00:00:00 Angela Srinivasan - External Smoking Status Start Date Stop Date Source Never smoked tobacco Angela Srinivasan - External Medications Ordered Medication Name Filled Medication Name Start Date Stop Date Current Medication? Ordering Clinician Indication Dosage Frequency Signature (SIG) Comments Components Source Montelukast (SINGULAIR) 10 MG oral Tablet tablet 02-20 00:00: 00 Yes 10mg Take 1 tablet (10 mg total) by mouth nightly. Angela Sowa l Oxybutynin Chloride 10 MG oral TABLET SR 24 HR 02-20 00:00: 00 Yes [id number] 10mg Take 1 tablet (10 mg total) by mouth daily. Angela gutierrez BUPROPION HCL SR 150 MG OR TB12 02-03 14:54: 49 02-03 00:00 :00 No Angela Sowa l Estradiol 1 MG oral Tablet 02-03 00:00: 00 Yes [id number] 1mg QD Take 1 tablet (1 mg total) by mouth daily. Angela Lester Externa l Lamotrigine 100 MG oral Tablet 01-29 00:00: 00 Yes 100mg QD Take 1 tablet (100 mg total) by mouth daily. Angela Lester Externa l Oxybutynin Chloride 10 MG oral TABLET SR 24 HR 2024-0 3-07 00:00: 00 Yes [id number] 10mg Take 1 tablet (10 mg total) by mouth daily. Angela gutierrez Estradiol 1 MG oral Tablet 8-28 00:00: 00 02-03 00:00 :00 No [id number] 1mg Take 1 tablet (1 mg total) by mouth daily. Angela gutierrez Montelukast (SINGULAIR) 10 MG oral Tablet tablet 3-21 00:00: 00 02-20 00:00 :00 No [id number] 10mg Take 1 tablet (10 mg total) by mouth nightly Anglea gutierrez Estradiol 1 MG oral Tablet 2-28 00:00: 00 Yes [id number] 1mg Take 1 tablet (1 mg total) by mouth daily Angela gutierrez BUPROPION HCL SR 150 MG OR TB12 2-27 10:01: 23 Yes Angela gutierrez Oxybutynin Chloride 10 MG oral TABLET SR 24 HR 2-27 00:00: 00 Yes [id number] 10mg Take 1 tablet (10 mg total) by mouth daily Angela gutierrez Oxybutynin Chloride 10 MG oral TABLET SR 24 HR 2-03 00:00: 00 02-03 00:00 :00 No [id number] TAKE ONE (1) TABLET(S) BY MOUTH ONCE A DAY. Angela gutierrez BUPROPION HCL SR 150 MG OR TB12 1-03 10:03: 22 Yes Angela gutierrez Oxybutynin Chloride 10 MG oral TABLET SR 24 HR 1-03 00:00: 00 Yes [id number] 10mg Take 1 tablet (10 mg total) by mouth daily Angela gutierrez BUPROPION HCL SR 150 MG OR TB12 2021-11 2-16 14:13: 03 Yes Angela gutierrez Ciprofloxac in HCl (Cipro) 500 MG oral Tablet 2021-11 2-16 00:00: 00 11-14 05:59 :00 No [id number] 500mg Take 1 tablet (500 mg total) by mouth 2 times daily for 7 days Angela gutierrez Lamotrigine 25 MG oral Tablet 2021-11 1- 00:00: 00 02-03 00:00 :00 No [id number] TAKE ONE (1) TABLET(S) BY MOUTH ONCE A DAY FOR 14 DAYS THEN INCREASE TO TWO (2) TABLETS A DAY. Angela gutierrez Estradiol 1 MG oral Tablet 2021-11 0- 00:00: 00 Yes [id number] 1mg Take 1 tablet (1 mg total) by mouth daily Angela gutierrez Montelukast (Singulair) 10 MG oral Tablet tablet 07-06 00:00: 00 Yes [id number] 10mg Take 1 tablet (10 mg total) by mouth nightly Angela gutierrez Nitrofurant oin Monohyd Macro (Macrobid) 100 MG oral Capsule 8- 00:00: 00 02-03 00:00 :00 No [id number] 100mg Take 1 capsule (100 mg total) by mouth 2 times daily Angela gutierrez Clobetasol Propionate 0.05 % apply externally Cream 06-01 00:00: 00 02-03 00:00 :00 No [id number] Apply 1 applicatio n topically 2 times daily Angela gutierrez Meloxicam 15 MG oral Tablet - 00:00: 00 02-03 00:00 :00 No [id number] 15mg Take 1 tablet (15 mg total) by mouth daily Angela gutierrez Gabapentin 100 MG oral Capsule 3-03 00:00: 00 02-03 00:00 :00 No Angela gutierrez BUPROPION HCL SR 150 MG OR TB12 2-08 15:33: 02 Yes Angela Srinivasan Omeprazole 40 MG oral Delayed Release Capsule 2-08 00:00: 00 02-03 00:00 :00 No [id number] 40mg Take 1 capsule (40 mg total) by mouth daily Angela Seybold - Externa l Quetiapine Fumarate 25 MG oral Tablet 8-09 00:00: 00 02-03 00:00 :00 No Angela Badilloold - Externa l Immunizations Ordered Immunization Name Filled Immunization Name Date Status Comments Source Covid-19 Vaccine (Melboss), Mrna-lnp, Gilmer Protein, Pf, 30mcg/0.3ml,IM 2021-03-01 00:00:00 Completed Angela Tellesybold - External Covid-19 Vaccine (Melboss), Mrna-lnp, Gilmer Protein, Pf, 30mcg/0.3ml,IM 2021-03-01 00:00:00 Completed Angela Tellesybold Covid-19 Vaccine (Melboss), Mrna-lnp, Gilmer Protein, Pf, 30mcg/0.3ml,IM 2021-03-01 00:00:00 Completed Angela Seybold - External Covid-19 Vaccine (Melboss), Mrna-lnp, Gilmer Protein, Pf, 30mcg/0.3ml,IM 2021-03-01 00:00:00 Completed Angela Seybold - External Covid-19 Vaccine (Melboss), Mrna-lnp, Gilmer Protein, Pf, 30mcg/0.3ml,IM 2021-03-01 00:00:00 Completed Angela Seybold - External Covid-19 Vaccine (Melboss), Mrna-lnp, Gilmer Protein, Pf, 30mcg/0.3ml,IM 2021-02-08 00:00:00 Completed Angela Seybold - External Covid-19 Vaccine (Melboss), Mrna-lnp, Gilmer Protein, Pf, 30mcg/0.3ml,IM 2021-02-08 00:00:00 Completed Angela Seybold Covid-19 Vaccine (Melboss), Mrna-lnp, Gilmer Protein, Pf, 30mcg/0.3ml,IM 2021-02-08 00:00:00 Completed Angela Seybold - External Covid-19 Vaccine (Pfizer), Mrna-lnp, Gilmer Protein, Pf, 30mcg/0.3ml,IM 2021-02-08 00:00:00 Completed Angela Seybold - External Covid-19 Vaccine (Melboss), Mrna-lnp, Gilmer Protein, Pf, 30mcg/0.3ml,IM 2021-02-08 00:00:00 Completed Angela Seybold - External Influenza Virus Vaccine, Whole Virus 2011-09-18 00:00:00 Completed Angela Seybold - External Influenza Virus Vaccine, age 6 months and up 2011-09-18 00:00:00 Completed Angela Seybold - External Influenza Virus Vaccine, Whole Virus 2011-09-18 00:00:00 Completed Angela Seybold - External Influenza Virus Vaccine, age 6 months and up 2011-09-18 00:00:00 Completed Angela Seybold - External Influenza Virus Vaccine, Whole Virus 2011-09-18 00:00:00 Completed Angela Seybold - External Influenza Virus Vaccine, age 6 months and up 2011-09-18 00:00:00 Completed Angela Seybold - External Influenza Virus Vaccine, Whole Virus 2011-09-18 00:00:00 Completed Angela Seybold - External Influenza Virus Vaccine, age 6 months and up 2011-09-18 00:00:00 Completed Angela Seybold - External Covid-19 Vaccine (Pfizer), Mrna-lnp, Gilmer Protein, Pf, 30mcg/0.3ml,IM Unknown Completed Angela Seybol d - External Covid-19 Vaccine (Pfizer), Mrna-lnp, Gilmer Protein, Pf, 30mcg/0.3ml,IM Unknown Completed Angela Seybol d - External Influenza Virus Vaccine, age 6 months and up Unknown Completed Angela Seybold - External Influenza Virus Vaccine, Whole Virus Unknown Completed Angela Seybold - External Influenza, Injectable, Mdck, Preservative Free, Quadrivalent Unknown Completed Angeal Seybold - External Covid-19 Vaccine (Pfizer), Mrna-lnp, Gilmer Protein, Pf, 30mcg/0.3ml,IM Unknown Completed Angela Seybol d - External Covid-19 Vaccine (Pfizer), Mrna-lnp, Gilmer Protein, Pf, 30mcg/0.3ml,IM Unknown Completed Angela Seybol d - External Influenza Virus Vaccine, age 6 months and up Unknown Completed Angela Seybold - External Influenza Virus Vaccine, Whole Virus Unknown Completed Angela Seybold - External Influenza, Injectable, Mdck, Preservative Free, Quadrivalent Unknown Completed Angela Seybold - External Covid-19 Vaccine (Melboss), Mrna-lnp, Gilmer Protein, Pf, 30mcg/0.3ml,IM Unknown Completed Angela Owen d - External Influenza Virus Vaccine, age 6 months and up Unknown Completed Angela Srinivasan - External Influenza Virus Vaccine, Whole Virus Unknown Completed Angela Tellesybold - External Influenza, Injectable, Mdck, Preservative Free, Quadrivalent Unknown Completed Angela ybold - External Vital Signs Vital Name Observation Time Observation Value Comments S ource Systolic blood pressure 2024-02-21 18:39:00 110 mm[Hg] Angela Seybo ld - External Diastolic blood pressure 2024-02-21 18:39:00 82 mm[Hg] Angela Seybo ld - External Heart rate 2024-02-21 18:39:00 98 /min Kelse y Seybold - External Body temperature 2024-02-21 18:39:00 36 Yvonne Angela Seybold - External Respiratory rate 2024-02-21 18:39:00 14 /min Angela Seybold - External Body height 2024-02-21 18:39:00 149.9 cm Julianna ey Seybold - External Body weight 2024-02-21 18:39:00 56.7 kg Julianna ey Seybold - External BMI 2024-02-21 18:39:00 25.25 kg/m2 Julianna ey Seybold - External Systolic blood pressure 2024-02-04 19:52:00 104 mm[Hg] Angela Seybo ld - External Diastolic blood pressure 2024-02-04 19:52:00 78 mm[Hg] Angela Seybo ld - External Heart rate 2024-02-04 19:52:00 109 /min Kelse y Seybold - External Body temperature 2024-02-04 19:52:00 36.33 Yvonne Angela Seybold - External Respiratory rate 2024-02-04 19:52:00 14 /min Angela Seybold - External Body height 2024-02-04 19:52:00 149.9 cm Julianna ey Seybold - External Body weight 2024-02-04 19:52:00 58.514 kg Julianna ey Seybold - External BMI 2024-02-04 19:52:00 26.05 kg/m2 Julianna ey Seybold - External Systolic blood pressure 2023-01-18 16:00:00 119 mm[Hg] Angela Seybo ld - External Diastolic blood pressure 2023-01-18 16:00:00 80 mm[Hg] Angela Seybo ld - External Heart rate 2023-01-18 16:00:00 75 /min Kelse y Seybold - External Body temperature 2023-01-18 16:00:00 36.67 Yvonne Angela Seybold - External Respiratory rate 2023-01-18 16:00:00 16 /min Angela Seybold - External Body height 2023-01-18 16:00:00 149.9 cm Julianna ey Seybold - External Body weight 2023-01-18 16:00:00 56.7 kg Julianna ey Seybold - External BMI 2023-01-18 16:00:00 25.25 kg/m2 Julianna ey Seybold - External Oxygen saturation in Arterial blood by Pulse oximetry 2023-01-18 16:00:00 98 /min Angela Seybo ld - External Systolic blood pressure 2022-11-24 16:05:00 119 mm[Hg] Angela Seybo ld - External Diastolic blood pressure 2022-11-24 16:05:00 88 mm[Hg] Angela Seybo ld - External Heart rate 2022-11-24 16:05:00 88 /min Harrisse y Seybold - External Body temperature 2022-11-24 16:04:00 36.72 Yvonne Angela Seybold - External Respiratory rate 2022-11-24 16:04:00 16 /min Angela Seybold - External Body height 2022-11-24 16:04:00 149.9 cm Julianna ey Seybold - External Body weight 2022-11-24 16:04:00 56.7 kg Julianna ey Seybold - External BMI 2022-11-24 16:04:00 25.25 kg/m2 Julianna ey Seybold - External Systolic blood pressure 2022-11-06 20:10:00 126 mm[Hg] Angela Seybo ld - External Diastolic blood pressure 2022-11-06 20:10:00 80 mm[Hg] Angela Seybo ld - External Heart rate 2022-11-06 20:10:00 122 /min Kelse y Seybold - External Body temperature 2022-11-06 20:10:00 36.06 Yvonne Angela Seybold - External Respiratory rate 2022-11-06 20:10:00 14 /min Angela Seybold - External Body height 2022-11-06 20:10:00 149.9 cm Julianna ey Seybold - External Body weight 2022-11-06 20:10:00 56.7 kg Julianna ey Seybold - External BMI 2022-11-06 20:10:00 25.25 kg/m2 Julianna ey Seybold - External Systolic blood pressure 2021-12-30 21:26:00 122 mm[Hg] Angela Seybo ld Diastolic blood pressure 2021-12-30 21:26:00 88 mm[Hg] Angela Seybo ld Heart rate 2021-12-30 21:26:00 98 /min Kelse y Seybold Body temperature 2021-12-30 21:26:00 36.28 Yvonne Angela Seybold Respiratory rate 2021-12-30 21:26:00 16 /min Angela Seybold Body height 2021-12-30 21:26:00 149.9 cm Julianna ey Seybold Body weight 2021-12-30 21:26:00 56.7 kg Julianna ey Seybold BMI 2021-12-30 21:26:00 25.25 kg/m2 Julianna ey Seybold Procedures Procedure Date / Time Performed Performing Clinicia n Source US URINE CAPACITY MEASURE 2022-11-24 16:26:00 Monica Mclaughlin - External URINALYSIS NONAUTO W/O SCOPE 2022-11-06 20:30:34 Char Laold - External Encounters Start Date/Time End Date/Time Encounter Type Admission Type Attending [facility] Facility Care Department Encounter ID Source 2024-08-16 16:05:00 2024-08-16 16:05:00 Outpatient LAB90 ANGELA ALCANTAR [id number] Angela Srinivasan 2024-08-16 15:30:00 2024-08-16 15:30:00 Outpatient CELIA KIM [id number] Angela Srinivasan 2024-08-16 00:00:00 2024-08-16 00:00:00 Outpatient PREZAS, CHAR ANGELA ALCANTAR [id number] [facility] 2024-03-17 00:00:00 2024-03-17 00:00:00 Outpatient PREZAS, CHAR ANGELA ALCANTAR [id number] [facility] 2024-03-16 00:00:00 2024-03-16 00:00:00 Outpatient PREZAS, CHAR ANGELA ALCANTAR [id number] [facility] 2024-03-15 00:00:00 2024-03-15 00:00:00 Outpatient HUNDL, PETERSON ALCANTAR [id number] [facility] 2024-02-21 14:00:00 2024-02-21 14:00:00 Out[facility] DIVYA[facility] [id number] [facility]:00:00 2024-02-18 00:00:00 Out[facility] HUNDL[facility] [id number] [facility] 2024-02-04 15:00:00 2024-02-04 15:00:00 Outpatient DIVYA, CATHERINE ALCANTAR [id number] [facility] 2024-02-01 00:00:00 2024-02-01 00:00:00 Outpatient PREZAS, CHAR ALCANTAR [id number] [facility] 2024-01-31 00:00:00 2024-01-31 00:00:00 Outpatient DIVYA, CATHERINE ALCANTAR [id number] [facility] 2024-01-27 00:00:00 2024-01-27 00:00:00 Outpatient DAVE SHAIKH [id number] Angela Seybold 2024-01-27 00:00:00 2024-01-27 00:00:00 Outpatient DIVYA, CATHERINE ALCANTAR [id number] Angela Seybold 2024-01-24 00:00:00 2024-01-24 00:00:00 Outpatient PREZAS, CHAR ALCANTAR [id number] [facility] 2023-07-17 00:00:00 2023-07-17 00:00:00 Outpatient DIVYACATHERINE ANGELA ALCANTAR [id number] Angela Seybold 2023-06-05 11:00:00 2023-06-05 11:00:00 Outpatient KATRINAIMANI GRACE ANGELA ALCANTAR [id number] Angela Seybold 2023-02-08 00:00:00 2023-02-08 00:00:00 Outpatient PETERSON POWELL [id number] Angela Seybold 2023-01-18 11:00:00 2023-01-18 11:00:00 Outpatient NEEL DAVE ANGELA ALCANTAR [id number] Angela Seybold 2023-01-15 00:00:00 2023-01-15 00:00:00 Outpatient DIVYA CATHERINE ANGELA ALCANTAR [id number] Angela Seybold 2023-01-07 15:20:00 2023-01-07 15:20:00 Outpatient JENNIFER AGUAYO [id number] Angela Seybold 2022-12-25 00:00:00 2022-12-25 00:00:00 Outpatient MONICA MCLAUGHLIN [id number] Angela Seybold 2022-12-23 00:00:00 2022-12-23 00:00:00 Outpatient MONICA MCLAUGHLIN [id number] Angela Seybold 2022-12-02 00:00:00 2022-12-02 00:00:00 Outpatient MD ANGELA CONNER [id number] Angela Seybold 2022-11-24 10:20:00 2022-11-24 10:20:00 Outpatient MONICA MCLAUGHLIN [id number] Angela Seybold 2022-11-12 00:00:00 2022-11-12 00:00:00 Outpatient CHAR LA [id number] Angela Seybold 2022-11-12 00:00:00 2022-11-12 00:00:00 Outpatient CHAR LA [id number] Angela Seybold 2022-11-11 00:00:2022-11-11 00:00:00 Outpatient CHAR LA ANGELA [id number] Angela Telleslinden 2022-11-06 14:15:00 2022-11-06 14:15:00 Outpatient CHAR LA ANGELA [id number] Angela Srinivasan 2022-10-23 09:20:00 2022-10-23 09:20:00 Outpatient LAB90 ANGELA ALCANTAR [id number] [facility] 2022-10-22 00:00:00 2022-10-22 00:00:00 Outpatient PETERSON POWELL ANGELA ALCANTAR [id number] [facility] 2022-07-31 00:00:00 2022-07-31 00:00:00 Outpatient DIVYACATHERINE ANGELA ALCANTAR [id number] [facility] 2022-07-22 00:00:00 2022-07-22 00:00:00 Outpatient PETERSON POWELL ANGELA ALCANTAR [id number] [facility] 2022-07-16 00:00:00 2022-07-16 00:00:00 Outpatient PETERSON POWELL ANGELA ALCANTAR [id number] [facility] 2022-07-06 12:00:00 2022-07-06 12:00:00 Outpatient LAB90 ANGELA ALCANTAR [id number] [facility] 2022-07-06 11:00:00 2022-07-06 11:30:00 Office Visit Breanna Peterson Millard [id number] [facility] 2022-07-06 00:00:00 2022-07-06 00:00:00 Outpatient PETERSON POWELL ANGELA ALCANTAR [id number] [facility] 2022-06-25 10:15:00 2022-06-25 10:15:00 Outpatient LAB90 ANGELA ALCANTAR [id number] Angela Srinivasan 2022-06-25 09:30:00 2022-06-25 10:00:00 Office Visit Peterson Powell [id number] Angela Srinivasan 2022-06-25 00:00:00 2022-06-25 00:00:00 Outpatient PETERSON POWELL [id number] Angela Srinivasan 2022-06-25 00:00:00 2022-06-25 00:00:00 Outpatient PETERSON POWELL [id number] Angela Srinivasan 2022-06-01 13:55:00 2022-06-01 13:55:00 Outpatient LAB90 ANGELA ALCANTAR [id number] Angela Srinivasan 2022-06-01 13:00:00 2022-06-01 13:30:00 Office Visit Peterson Powell [id number] Angela Srinivasan 2022-04-14 00:00:00 2022-04-14 00:00:00 Outpatient CATHERINE STOKES ANGELA ALCANTAR [id number] Angela Telleslinden 2022-04-14 00:00:00 2022-04-14 00:00:00 Outpatient DIVYACATHERINE BROOKS ANGELA ALCANTAR [id number] Angela Telleslinden 2021-12-31 09:20:00 2021-12-31 09:20:00 Outpatient LAB90 ANGELA ALCANTAR [id number] [facility] 2021-12-31 00:00:00 2021-12-31 00:00:00 Outpatient DIVYACATHERINE BROOKS ANGELA ALCANTAR [id number] Angela Srinivasan 2021-12-30 16:45:00 2021-12-30 16:45:00 Outpatient LAB90 ANGELA ALCANTAR [id number] Angela Telleslinden 2021-12-30 16:00:00 2021-12-30 16:30:00 Office Visit Kailee Stokeshoney Lemus Alex Millard [id number] Angela [facility] Results Test Description Test Time Test Comments Results Result Co mments Source Angela Srinivasan - ExternalURINALYSIS NONAUTO W/O [id number] 20:31:00* Test Item Value Reference Range Interpretation Comme nts UD KETONES (test code = 841226) NEG 5-160 UD GLUCOSE (test code = 102405) NEG 100-2000 UD PROTEIN (test code = 660561) NEG Trace - 2000 mg/dL UD LEUKOCYTES (test code = 587910) MOD Trace - Large @ 2 min. UD NITRITE (test code = 029413) NEG Neg. - Pos. @ 60 sec. UD UROBILINOGEN (test code = 905349) 0.2 mg/dL 0.2-8 UD PH (test code = 437844) See_Comment [Automated messa ge] The system which generated this result transmitted reference range: 5.0 - 8.5 @ 60 sec.. The reference range was not used to interpret this result as normal/abnormal. UD BLOOD (test code = 702231) LARGE Neg. - Large @ 60 sec. UD SPECIFIC GRAVITY (test code = 854928) See_Comment [Automated message] The system which generated this result transmitted reference range: 1.000 - 1.030 @ 45 sec.. The reference range was not used to interpret this result as normal/abnormal. UD BILIRUBIN (test code = 334073) NEG Neg. - Large @ 45 sec. Lab Interpretation (test code = 45276-9) Abnormal Angela Srinivasan - External Notes Date/Time Note Provider Source 2024-02-21 13:44:03 Chief Complaint Patient presents with Well Woman Exam Last WWE 2 years ago. Maria Ines Smith MA II [facility] 2024-02-04 14:55:13 Chief Complaint Patient presents with REFILLS-NURSE/MD Refill Estradiol Maria Ines Smith MA II [facility]
[2024-08-16] MEDS ORDERED: IBUPROFEN 400 MG TAB ONE (21:55)
[2024-08-16] MEDS ORDERED: ACETAMINOPHEN 500 MG TAB ONE (21:55)
[2024-08-16] MEDS ORDERED: PHENAZOPYRIDINE 100MG TAB PO ONE (21:56)
[2024-08-16 22:08] LABS: Specific Gravity < 1.005 (1.005-1.030); Sqamous Epithelial <5 /HPF (None Seen); Urine Bacteria 20-50 /HPF (<20); Urine Bilirubin NEGATIVE (Negative); Urine Blood 3+ (Negative); Urine Clarity Extremely Turbid (Clear); Urine Color Colorless (Yellow); Urine Culture Reflex Order REFLEXED; Urine Glucose NEGATIVE (Negative); Urine Ketones NEGATIVE (Negative); Urine Micro Reflex YN NO BILL MICROSCOPIC; Urine Nitrite NEGATIVE (Negative); Urine Protein NEGATIVE (Negative); Urine RBC <5 /HPF (None Seen); Urine Urobilinogen Normal (Normal); Urine WBC >50 /HPF (<5); Urine pH 6.5 (5.0-7.0)
[2024-08-16] MEDS ORDERED: LIDOCAINE 1% MPF 2 ML AMPULE ONE (22:44)
[2024-08-16] MEDS ORDERED: CEFTRIAXONE 1000 MG/VIAL ONE (22:44)
--- NOTE | 2024-08-16 23:29 | ER ---
Nurse's Notes [facility] Name: Inés Curry Age: 49 yrs Sex: Female : 1975 Arrival Date: 08/16/2024 Time: 20:14 Bed 17 Private MD: Diagnosis: Acute cystitis with hematuria;UTI/ Urinary tract infection, site not specified Presentation: 08/16 20:45 Chief complaint: Patient states: Urinary frequency and burning with urination onset cm10 this week. Coronavirus screen: Client denies travel out of the [place] in the last 14 days. Ebola Screen: Patient denies travel to an Ebola-affected area in the 21 days before illness onset. No symptoms or risks identified at this time. Initial Sepsis Screen: Does the patient meet any 2 criteria? HR > 90 bpm. Does the patient have a suspected source of infection? No. Patient's initial sepsis screen is negative. Risk Assessment: Do you want to hurt yourself or someone else? Patient reports no desire to harm self or others. Onset of symptoms was August 16, 2024. 20:45 Method Of Arrival: Ambulatory cm10 20:45 Acuity: DOUGLAS 3 cm10 Triage Assessment: 20:46 General: Appears in no apparent distress. uncomfortable, Behavior is calm, cooperative. cm10 Neuro: No deficits noted. Level of Consciousness is awake, alert, obeys commands, Oriented to person, place, time, situation, Appropriate for age. Respiratory: No deficits noted. Airway is patent Respiratory effort is even, unlabored, Respiratory pattern is regular, symmetrical. 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 - Infectious Disease History:: Denies. - Social history:: Smoking status: Patient denies any tobacco usage or history of. - Family history:: not pertinent. Screenin:04 [facility] ED Fall Risk Assessment (Adult) History of falling in the last 3 months, rg5 including since admission No falls in past 3 months (0 pts) Confusion or Disorientation No (0 pts) Intoxicated or Sedated No (0 pts) Impaired Gait No (0 pts) Mobility Assist Device Used No (0 pt) Altered Elimination No (0 pt) Score/Fall Risk Level 0 - 2 = Low Risk Oriented to surroundings, Maintained a safe environment, Hourly rounding (assess needs \T\ fall precautionary measures) done. Abuse screen: Denies threats or abuse. Nutritional screening: No deficits noted. Tuberculosis screening: No symptoms or risk factors identified. Assessment: 22:04 General: Appears in no apparent distress. comfortable, Behavior is calm, cooperative, rg5 appropriate for age. Pain: Complains of pain in groin Pain currently is 6 out of 10 on a pain scale. Quality of pain is described as burning, aching. Neuro: Level of Consciousness is awake, alert, obeys commands, Oriented to person, place, time. Cardiovascular: Denies chest pain, Patient's skin is warm and dry. Respiratory: Airway is patent Trachea midline Respiratory effort is even, unlabored, Respiratory pattern is regular, symmetrical. GI: Abdomen is round non-distended, Abd is soft and non tender. : Reports burning with urination, vaginal bleeding that is spotty. EENT: No deficits noted. Derm: Skin is intact, Skin is dry, Skin is normal, Skin temperature is warm. Musculoskeletal: Circulation, motion, and sensation intact. Range of motion: intact in all extremities. 23:17 Reassessment: No changes from previously documented assessment. Patient and/or family rg5 updated on plan of care and expected duration. Pain level reassessed. Patient is alert, oriented x 3, equal unlabored respirations, skin warm/dry/pink. Vital Signs: 20:45 BP 130 / 94; Pulse 103; Resp 18; Temp 97.4; Pulse Ox 97% on R/A; Weight 56.7 kg; Height cm10 4 ft. 11 in. ; Pain 4/10; 22:03 BP 133 / 81; Pulse 100; Resp 18; Pulse Ox 100% on R/A; Pain 6/10; rg5 23:17 BP 119 / 68; Pulse 98; Resp 18; Pulse Ox 99% on R/A; rg5 20:45 Body Mass Index 25.25 (56.70 kg, 149.86 cm) cm10 20:45 Pain Scale: Adult cm10 22:03 Pain Scale: Adult rg5 ED Course: 20:18 Patient arrived in ED. jj6 20:32 Ham Perez MD is Attending Physician. sp4 20:46 Triage completed. cm10 20:46 Arm band placed on left wrist. Patient placed in waiting room. cm10 21:43 Fidencio Rehman, RN is Primary Nurse. rg5 21:55 Urinalysis W/Microscopic Sent. oe 21:56 Urine collected: clean catch specimen, casper colored. oe 22:04 Bed in low position. Call light in reach. Side rails up X 1. rg5 22:04 No provider procedures requiring assistance completed. Patient did not have IV access rg5 during this emergency room visit. 23:36 Provided Education on: POST ER CARE. rg5 Administered Medications: 22:02 Drug: Ibuprofen PO 800 mg PO once Route: PO; rg5 22:41 Follow up: Response: No adverse reaction rg5 22:02 Drug: Phenazopyridine PO 200 mg PO once Route: PO; rg5 22:41 Follow up: Response: No adverse reaction rg5 22:02 Drug: Acetaminophen PO 1000 mg PO once Route: PO; rg5 22:41 Follow up: Response: No adverse reaction; Pain is decreased rg5 22:50 Drug: Rocephin (cefTRIAXone) IM 1 grams IM once Route: IM; Site: right gluteus; rg5 23:16 Follow up: Response: No adverse reaction rg5 Medication: 22:04 VIS not applicable for this client. rg5 Outcome: 23:28 Discharge ordered by . sp4 23:36 Discharged to home ambulatory, rg5 23:36 Condition: stable 23:36 Discharge instructions given to patient, Instructed on discharge instructions, follow up and referral plans. Demonstrated understanding of instructions, Prescriptions given X 3, 23:37 Patient left the ED. rg5 Signatures: Cristofer Christy Jennifer jj6 Ham Perez MD MD sp4 Tatum Pelaez RN RN cm10 Fidencio Rehman, RN RN rg5 Corrections: (The following items were deleted from the chart) 20:46 20:46 Allergies: Aspirin; cm10 cm10
--- NOTE | 2024-08-16 23:29 | EDPHYS ---
Physician Documentation [facility] Name: Inés Curry Age: 49 yrs Sex: Female : 1975 Arrival Date: 08/16/2024 Time: 20:14 Bed 17 Private MD: ED Physician Ham Perez HPI: 08/16 20:33 This 49 yrs old Female presents to ER via Unassigned with complaints of Pain sp4 With Urination, Urinary Incontinence. 08/17 23:32 Pleasant 49-year-old woman presents for dysuria , some complaint of burning and sp4 incontinence . 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 - Infectious Disease History:: Denies. - Social history:: Smoking status: Patient denies any tobacco usage or history of. - Family history:: not pertinent. ROS: 08/17 23:32 Constitutional: Negative for fever, chills, and weight loss, positive for dysuria sp4 All other systems are negative, Vital Signs: 08/16 20:45 BP 130 / 94; Pulse 103; Resp 18; Temp 97.4; Pulse Ox 97% on R/A; Weight 56.7 kg; Height cm10 4 ft. 11 in. ; Pain 4/10; 22:03 BP 133 / 81; Pulse 100; Resp 18; Pulse Ox 100% on R/A; Pain 6/10; rg5 23:17 BP 119 / 68; Pulse 98; Resp 18; Pulse Ox 99% on R/A; rg5 20:45 Body Mass Index 25.25 (56.70 kg, 149.86 cm) cm10 20:45 Pain Scale: Adult cm10 22:03 Pain Scale: Adult rg5 MDM: 20:33 Patient medically screened. sp4 08/16 20:33 Order name: Urinalysis W/Microscopic; Complete Time: 22:30 sp4 08/16 22:11 Order name: Urine Culture EDMS Administered Medications: 22:02 Drug: Ibuprofen PO 800 mg PO once Route: PO; rg5 22:41 Follow up: Response: No adverse reaction rg5 22:02 Drug: Phenazopyridine PO 200 mg PO once Route: PO; rg5 22:41 Follow up: Response: No adverse reaction rg5 22:02 Drug: Acetaminophen PO 1000 mg PO once Route: PO; rg5 22:41 Follow up: Response: No adverse reaction; Pain is decreased rg5 22:50 Drug: Rocephin (cefTRIAXone) IM 1 grams IM once Route: IM; Site: right gluteus; rg5 23:16 Follow up: Response: No adverse reaction rg5 Disposition Summary: 08/16/24 23:28 Discharge Ordered Notes: Location: Home sp4 Problem: new sp4 Symptoms: have improved sp4 Condition: Stable sp4 Diagnosis - Acute cystitis with hematuria sp4 - UTI/ Urinary tract infection, site not specified sp4 Followup: sp4 - With: Private Physician - When: 7 - 10 days - Reason: Recheck today's complaints Discharge Instructions: - Discharge Summary Sheet sp4 - Urinary Tract Infection, Adult, [id number] sp4 Forms: - Patient Portal Instructions sp4 Prescriptions: - Ibuprofen 800 mg Oral Tablet - take 1 tablet ORAL route every 8 hours As needed take with food; 30 tablet; sp4 Refills: 0, Product Selection Permitted - Pyridium 200 mg Oral Tablet - take 1 tablet ORAL route every 8 hours for 3 days; 9 tablet; Refills: 0, sp4 Product Selection Permitted - Tramadol 50 mg Oral tablet - take 1 tablet ORAL route every 8 hours as needed; 25 tablet; Refills: 0, sp4 Product Selection Permitted Addendum: 08/17/2024 23:38 Addendum: Physical exam -- unremarkable physical exam, medicated physical exam - No s p4 abdominal pain and tenderness, otherwise unremarkable. 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
[2024-08-17 00:33] VITALS: TEMP 97.4
[2024-08-17 00:39] VITALS: BP 119/68; O2SAT 99
== END 2024-08-16 23:37 | disposition home or self-care (01) ==
LOC: ER 20:14
DX: N30.01 Acute cystitis with hematuria (principal)
CPT/HCPCS: 81001; 87077; 87086; 87088; 87186; 96372; 99284; J0696

== ENCOUNTER 2024-09-24 09:53 | Emergency (ER) | payer OTHER ==
--- OUTSIDE RECORDS SUMMARY | 2024-09-24 09:56 | XMS REPORT | Continuity of Care Document ---
Author Name Unknown Address [address] [place] [address] [facility] thconnect Address [address] [place] [address] Care Team Providers Care Retina Subspecialist Name Role Phone Divya TORRES, Catherine Lemus Primary Care Physician CHAR LA Attending Clinician Unavailable CELIA KIM Attending Clinician Unavailable LAB90 Attending Clinician Unavailable PETERSON POWELL Attending Clinician Unavailable CATHERINE STOKES Attending Clinician UnaDAVE Yanez Attending Clinician Unavailable IMANI HERNDON Attending Clinician Unavailable JENNIFER AGUAYO Attending Clinician UnavailMONICA Phipps Attending Clinician Unavailable MD NORRIS Attending Clinician UnavailPeterson Guy Attending Clinician [phone] Catherine Stokes MD Attending Clinician [phone] Payers Payer Name Policy Type Policy Number Effective Date Expirati on Date Source [employer]ET[employer] 2 [id number] 2021 00:00:00 Problems Condition Name Condition Details Condition Category Status Onset Date Resolution Date Last Treatment Date Treating Clinician Comments Source Acute cystitis without hematuria Acute cystitis without hematuria Disease Active 2021-11 00:00: 00 Angela Srinivasan - Externa l Urinary incontinen ce Urinary incontinen ce Disease Active 2021-11 00:00: 00 Angela Srinivasan - Externa matt Allergies Allergies Disease Active 06-01 00:00: 00 [...] SR 24 HR 02-20 00:00: 00 Yes [id number] 10mg Take 1 tablet (10 mg total) by mouth daily. Angela gutierrez BUPROPION HCL SR 150 MG OR TB12 02-03 14:54: 49 02-03 00:00 :00 No Angela Sowa l Estradiol 1 MG oral Tablet 02-03 00:00: 00 Yes [id number] 1mg QD Take 1 tablet (1 mg total) by mouth daily. Angela Lester Externa l Lamotrigine 100 MG oral Tablet 01-29 00:00: 00 Yes 100mg QD Take 1 tablet (100 mg total) by mouth daily. Angela Lester Externa l Oxybutynin Chloride 10 MG oral TABLET SR 24 HR 2024-0 3-07 00:00: 00 Yes [id number] 10mg Take 1 tablet (10 mg total) by mouth daily. Angela gutierrez Estradiol 1 MG oral Tablet 8-28 00:00: 00 02-03 00:00 :00 No [id number] 1mg Take 1 tablet (1 mg total) by mouth daily. Angela gutierrez Montelukast (SINGULAIR) 10 MG oral Tablet tablet 3-21 00:00: 00 02-20 00:00 :00 No [id number] 10mg Take 1 tablet (10 mg total) by mouth nightly Angela gutierrez Estradiol 1 MG oral Tablet 2-28 00:00: 00 Yes [id number] 1mg Take 1 tablet (1 mg total) by mouth daily Angela gutierrez BUPROPION HCL SR 150 MG OR TB12 2-27 10:01: 23 Yes Angela gutierrez Oxybutynin Chloride 10 MG oral TABLET SR 24 HR 2-27 00:00: 00 Yes [id number] 10mg Take 1 tablet (10 mg total) by mouth daily Angela gutierrez Oxybutynin Chloride 10 MG oral TABLET SR 24 HR 2-03 00:00: 00 02-03 00:00 :00 No [id number] TAKE ONE (1) TABLET(S) BY MOUTH ONCE A DAY. Angela gutierrez BUPROPION HCL SR 150 MG OR TB12 1-03 10:03: 22 Yes Angela gutierrez Oxybutynin Chloride 10 MG oral TABLET SR 24 HR 1-03 00:00: 00 Yes [id number] 10mg Take 1 tablet (10 mg total) by mouth daily Angela gutierrez BUPROPION HCL SR 150 MG OR TB12 2021-11 2-16 14:13: 03 Yes Angela gutierrez Ciprofloxac in HCl (Cipro) 500 MG oral Tablet 2021-11 2-16 00:00: 00 11-14 05:59 :00 No [id number] 500mg Take 1 tablet (500 mg total) by mouth 2 times daily for 7 days Angela gutierrez Lamotrigine 25 MG oral Tablet 2021-11 1- 00:00: 00 02-03 00:00 :00 No [id number] TAKE ONE (1) TABLET(S) BY MOUTH ONCE A DAY FOR 14 DAYS THEN INCREASE TO TWO (2) TABLETS A DAY. Angela gutierrez Estradiol 1 MG oral Tablet 2021-11 0- 00:00: 00 Yes [id number] 1mg Take 1 tablet (1 mg total) by mouth daily Angela gutierrez Montelukast (Singulair) 10 MG oral Tablet tablet 07-06 00:00: 00 Yes [id number] 10mg Take 1 tablet (10 mg total) by mouth nightly Angela gutierrez Nitrofurant oin Monohyd Macro (Macrobid) 100 MG oral Capsule 8- 00:00: 00 02-03 00:00 :00 No [id number] 100mg Take 1 capsule (100 mg total) by mouth 2 times daily Angela gutierrez Clobetasol Propionate 0.05 % apply externally Cream 06-01 00:00: 00 02-03 00:00 :00 No [id number] Apply 1 applicatio n topically 2 times daily Angela gutierrez Meloxicam 15 MG oral Tablet - 00:00: 00 02-03 00:00 :00 No [id number] 15mg Take 1 tablet (15 mg total) by mouth daily Angela gutierrez Gabapentin 100 MG oral Capsule 3-03 00:00: 00 02-03 00:00 :00 No Angela gutierrez BUPROPION HCL SR 150 MG OR TB12 2-08 15:33: 02 Yes Angela Srinivasan Omeprazole 40 MG oral Delayed Release Capsule 2-08 00:00: 00 02-03 00:00 :00 No [id number] 40mg Take 1 capsule (40 mg total) by mouth daily Angela Seybold - Externa l Quetiapine Fumarate 25 MG oral Tablet 8-09 00:00: 00 02-03 00:00 :00 No Angela Badilloold - Externa l Immunizations Ordered Immunization Name Filled Immunization Name Date Status Comments Source Covid-19 Vaccine ([facility]), Mrna-lnp, [place] [employer], Pf, 30mcg/0.3ml,IM 2021-03-01 00:00:00 Completed Angela Tellesybold - External Covid-19 Vaccine ([facility]), Mrna-lnp, [place] Protein, Pf, 30mcg/0.3ml,IM 2021-03-01 00:00:00 Completed Angela Tellesybold Covid-19 Vaccine ([facility]), Mrna-lnp, [place] Protein, Pf, 30mcg/0.3ml,IM 2021-03-01 00:00:00 Completed Angela Seybold - External Covid-19 Vaccine ([facility]), Mrna-lnp, [place] Protein, Pf, 30mcg/0.3ml,IM 2021-03-01 00:00:00 Completed Angela Seybold - External Covid-19 Vaccine ([facility]), Mrna-lnp, Gilmer Protein, Pf, 30mcg/0.3ml,IM 2021-03-01 00:00:00 Completed Angela Seybold - External Covid-19 Vaccine ([facility]), Mrna-lnp, Gilmer Protein, Pf, 30mcg/0.3ml,IM 2021-02-08 00:00:00 Completed Angela Seybold - External Covid-19 Vaccine ([facility]), Mrna-lnp, Gilmer Protein, Pf, 30mcg/0.3ml,IM 2021-02-08 00:00:00 Completed Angela Seybold Covid-19 Vaccine ([facility]), Mrna-lnp, Gilmer Protein, Pf, 30mcg/0.3ml,IM 2021-02-08 00:00:00 Completed Angela Seybold - External Covid-19 Vaccine (Pf[facility]), Mrna-lnp, Gilmer Protein, Pf, 30mcg/0.3ml,IM 2021-02-08 00:00:00 Completed Angela Seybold - External Covid-19 Vaccine ([facility]), Mrna-lnp, Gilmer Protein, Pf, 30mcg/0.3ml,IM 2021-02-08 00:00:00 [...] Completed Angela Seybold - External Covid-19 Vaccine ([facility]), Mrna-lnp, Gilmer Protein, Pf, 30mcg/0.3ml,IM Unknown Completed [...] Quadrivalent Unknown Completed Angela Seybold - External Vital Signs Vital Name Observation [...] External Heart rate 2022-11-24 16:05:00 88 /min Kelse y Seybold - External Body temperature 2022-11-24 [...] URINALYSIS NONAUTO W/O SCOPE 2022-11-06 20:30:34 Char La - External Encounters Start Date/Time End Date/Time Encounter Type Ad[facility] Encounter ID Source 2024-09-19 00:00:00 2024-09-19 00:00:00 Outpatient CHAR LA [id number] Angela Srinivasan 2024-09-15 00:00:00 2024-09-15 00:00:00 Outpatient CHAR LA [id number] nAgela Srinivasan 2024-09-15 00:00:00 2024-09-15 00:00:00 Outpatient CELIA KIM [id number] Angela Srinivasan 2024-08-21 00:00:00 2024-08-21 00:00:00 Outpatient CHAR LA [id number] Angela Srinivasan 2024-08-16 16:05:00 2024-08-16 16:05:00 Outpatient HAKEEM ANGELA ALCANTAR [id number] Angela Seyblinden 2024-08-16 15:30:00 2024-08-16 15:30:00 Outpatient KAIDEN KIMEDVIN ALCANTAR [id number] Angela Seyblinden 2024-08-16 00:00:00 2024-08-16 00:00:00 Outpatient PREZACHAR Agee ANGELA ALCANTAR [id number] Angela Seybold 2024-03-17 00:00:00 2024-03-17 00:00:00 Outpatient PREZAS CHAR ALCANTAR [id number] Angela Seybold 2024-03-16 00:00:00 2024-03-16 00:00:00 Outpatient PREZASJAYCEECHARZABRINA ALCANTAR [id number] Angela Seybold 2024-03-15 00:00:00 2024-03-15 00:00:00 Outpatient PETERSON POWELL [id number] Angela Seybold 2024-02-21 14:00:00 2024-02-21 14:00:00 Outpatient CATHERINE STOKES [id number] Angela Seybold 2024-02-18 00:00:00 2024-02-18 00:00:00 Outpatient PETERSON POWELL [id number] Angela Seybold 2024-02-04 15:00:00 2024-02-04 15:00:00 Outpatient CATHERINE STOKES [id number] Angela Seybold 2024-02-01 00:00:00 2024-02-01 00:00:00 Outpatient PREZAS CHAR ALCANTAR [id number] Angela Seybold 2024-01-31 00:00:00 2024-01-31 00:00:00 Outpatient CATHERINE STOKES [id number] Angela Seybold 2024-01-27 00:00:00 2024-01-27 00:00:00 Outpatient DAVE SHAIKH [id number] Angela Seybold 2024-01-27 00:00:00 2024-01-27 00:00:00 Outpatient CATHERINE STOKES ANGELA ALCANTAR [id number] Angela Seybold 2024-01-24 00:00:00 2024-01-24 00:00:00 Outpatient CHAR LA ANGELA ALCANTAR [id number] Angela Seybold 2023-07-17 00:00:00 2023-07-17 00:00:00 Outpatient CATHERINE STOKES ANGELA ALCANTAR [id number] [facility] 2023-06-05 11:00:00 2023-06-05 11:00:00 Outpatient KATRINA IMANI ANGELA ALCANTAR [id number] [facility] 2023-02-08 00:00:00 2023-02-08 00:00:00 Outpatient PETERSON POWELL [id number] [facility] 2023-01-18 11:00:00 2023-01-18 11:00:00 Outpatient DAVE SHAIKH [id number] [facility] 2023-01-15 00:00:00 2023-01-15 00:00:00 Outpatient DIVYACATHERINE BROOKS ANGELA ALCANTAR [id number] [facility] 2023-01-07 15:20:00 2023-01-07 15:20:00 Outpatient JENNIFER AGUAYO [id number] Agnela Seybold 2022-12-25 00:00:00 2022-12-25 00:00:00 Outpatient MONICA MCLAUGHLIN [id number] Angela Seybold 2022-12-23 00:00:00 2022-12-23 00:00:00 Outpatient MONICA MCLAUGHLIN [id number] Angela Seybold 2022-12-02 00:00:00 2022-12-02 00:00:00 Outpatient MD ANGELA CONNER [id number] Angela Seybold 2022-11-24 10:20:00 2022-11-24 10:20:00 Outpatient MONICA MCLAUGHLIN [id number] [facility] 2022-11-12 00:00:00 2022-11-12 00:00:00 Outpatient PREZACHAR Agee ANGELA [id number] Angela Tellesyblinden 2022-11-12 00:00:00 2022-11-12 00:00:00 Outpatient PRECHAR LARA ANGELA [id number] Angela Tellesyblinden 2022-11-11 00:00:00 2022-11-11 00:00:00 Outpatient PREZACHAR Agee ANGELA [id number] Angela Tellesyblinden 2022-11-06 14:15:00 2022-11-06 14:15:00 Outpatient PREZACHAR Agee ANGELA [id number] [facility] 2022-10-23 09:20:00 2022-10-23 09:20:00 Outpatient LAB90 ANGELA ALCANTAR [id number] [facility] 2022-10-22 00:00:00 2022-10-22 00:00:00 Outpatient PETEROSN POWELL [id number] [facility] 2022-07-31 00:00:00 2022-07-31 00:00:00 Outpatient DIVYA CATHERINE ANGELA ALCANTAR [id number] [facility] 2022-07-22 00:00:00 2022-07-22 00:00:00 Outpatient PETERSON POWELL [id number] [facility] 2022-07-16 00:00:00 2022-07-16 00:00:00 Outpatient PETERSON POWELL [id number] [facility] 2022-07-06 12:00:00 2022-07-06 12:00:00 Outpatient LAB90 ANGELA ALCANTAR [id number] [facility] 2022-07-06 11:00:00 2022-07-06 11:30:00 Office Visit Peterson Powell [id number] Angela Seyblinden 2022-07-06 00:00:00 2022-07-06 00:00:00 Outpatient PETERSON POWELL [id number] Angela Srinivasan 2022-06-25 10:15:00 2022-06-25 10:15:00 Outpatient LAB90 ANGELA STOKESSEY [id number] Angela Srinivasan 2022-06-25 09:30:00 2022-06-25 10:00:00 Office Visit Peterson Powell [id number] Angela Srinivasan 2022-06-25 00:00:00 2022-06-25 00:00:00 Outpatient PETERSON POWELL ANGELA [id number] Angela Srinivasan 2022-06-25 00:00:00 2022-06-25 00:00:00 Outpatient PETERSON POWELL ANGELA [id number] Angela Srinivasan 2022-06-01 13:55:00 2022-06-01 13:55:00 Outpatient LAB90 ANGELA ANGELA [id number] Angela Srinivasan 2022-06-01 13:00:00 2022-06-01 13:30:00 Office Visit Peterson Powell [id number] Angela Srinivasan 2022-04-14 00:00:00 2022-04-14 00:00:00 Outpatient [facility]INE TSOKES [id number] [facility] 2022-04-14 00:00:00 2022-04-14 00:00:00 Outpatient CATHERINE STOKES [id number] Angela Srinivasan 2021-12-31 09:20:00 2021-12-31 09:20:00 Outpatient LAB90 ANGELA ALCANTAR [id number] Angela Telleslinden 2021-12-31 00:00:00 2021-12-31 00:00:00 Outpatient CATHERINE STOKES [id number] Angela Telleslinden 2021-12-30 16:45:00 2021-12-30 16:45:00 Outpatient LAB90 ANGELA ALCANTAR [id number] Angela Srinivasan 2021-12-30 16:00:00 2021-12-30 16:30:00 Office Visit Catherine Stokes [id number] Angela Srinivasan Results Test Description Test Time Test Comments Results Result Co mments Source Angela Secrislinden - ExternalURINALYSIS NONAUTO W/O [id number] 20:31:00* Test Item Value Reference Range Interpretation Comme nts UD KETONES (test code = 014891) NEG 5-160 UD GLUCOSE (test code = 496204) NEG 100-2000 UD PROTEIN (test code = 666582) NEG Trace - 2000 mg/dL UD LEUKOCYTES (test code = 921639) MOD Trace - Large @ 2 min. UD NITRITE (test code = 864197) NEG Neg. - Pos. @ 60 sec. UD UROBILINOGEN (test code = 460362) 0.2 mg/dL 0.2-8 UD PH (test code = 242102) See_Comment [Automated messa ge] The system which generated this result transmitted reference range: 5.0 - 8.5 @ 60 sec.. The reference range was not used to interpret this result as normal/abnormal. UD BLOOD (test code = 239270) LARGE Neg. - Large @ 60 sec. UD SPECIFIC GRAVITY (test code = 069898) See_Comment [Automated message] The system which generated this result transmitted reference range: 1.000 - 1.030 @ 45 sec.. The reference range was not used to interpret this result as normal/abnormal. UD BILIRUBIN (test code = 819522) NEG Neg. - Large @ 45 sec. Lab Interpretation (test code = 65015-6) Abnormal Angela Seraimundo - External Notes Date/Time Note Provider Source 2024-02-21 13:44:03 Chief Complaint Patient presents with Well Woman Exam Last WWE 2 years ago. [facility] 14:55:13 Chief Complaint Patient presents with REFILLS-NURSE/MD Refill Estradiol Maria Ines Smith MA II [facility]
[2024-09-24 10:58] LABS: Absolute Eosinophils 0.4 K/uL (0-0.5); Absolute Lymphocytes (CBC) 1.3 K/uL (0.7-4.9); Absolute Monocytes 0.7 K/uL (0.1-1.3); Absolute Neutrophil 9.9 K/uL (1.8-8.0); Basophils % 0.3 % (0-1.3); Hematocrit 45.4 % (36.0-45.0); Hemoglobin 14.7 g/dL (12.0-15.0); Lymphocytes % 10.7 % (15.3-44.8); MCH 29.3 pg (27.0-35.0); MCHC 32.3 g/dL (32.0-36.0); MCV 90.6 fL (80-100); MPV 8.7 fL (7.6-11.3); Monocytes % 5.7 % (3.3-12.3); Neutrophils % 80.3 % (41.7-73.7); Platelets 346 thou/uL (152-406); RBC Red Blood Cell Count 5.01 M/uL (3.86-4.86); Red Cell Distribution Width 13.8 % (12.1-15.2)
[2024-09-24 11:12] LABS: Specific Gravity 1.021 (1.005-1.030); Transitional Epithelial <5 /HPF (None Seen); Urine Bacteria <20 /HPF (<20); Urine Bilirubin NEGATIVE (Negative); Urine Blood 3+ (OVER) (Negative); Urine Clarity Extremely Turbid (Clear); Urine Color Dark-Brown (Yellow); Urine Culture Reflex Order REFLEXED; Urine Glucose NEGATIVE (Negative); Urine Ketones NEGATIVE (Negative); Urine Microscopic Reflex YN ORDER UMIC; Urine Mucus 2+ /HPF (None Seen); Urine Nitrite NEGATIVE (Negative); Urine Protein 3+ (Negative); Urine RBC >50 /HPF (None Seen); Urine Urobilinogen Normal (Normal); Urine WBC >50 /HPF (<5)
[2024-09-24 11:13] LABS: Specific Gravity 1.021 (1.005-1.030)
--- NOTE | 2024-09-24 11:14 | RAD REPORT ---
EXAMINATION: CT ABDOMEN AND PELVIS WITHOUT CONTRAST CLINICAL INDICATION: Female, 49 years old.HEMATURIA TECHNIQUE: CT abdomen and pelvis was performed, without IV contrast, as per department protocol. Axia l, sagittal and coronal reconstructions were obtained. One or more of the following dose reduction techniques were used: Automated exposure control, adjustment of the mA and/or kV according to the pat ient size, and/or iterative reconstruction. Unless otherwise specified, incidental findings do not require dedicated imaging follow-up. [id number]. IV CONTRAST: Not administered. COMPARISON: 07/31/2022 FINDINGS: The lack of intravenous contrast limits the sensitivity of this exam for evaluation of solid visceral organs, vascular structures, and retroperitoneum. LOWER CHEST: The visualized lung bases are clear. LIVER: Normal in size and contour. No focal lesion. GALLBLADDER/BILE DUCTS: Cholecystectomy? PANCREAS: No mass, ductal dilation, or trip-pancreatic fluid. SPLEEN: Normal size. No focal lesion. ADRENALS: Normal; no mass. KIDNEYS AND URETERS: Bilateral renal lesions which are either benign in appearance or too small to ac curately characterize but statistically benign. Punctate calculi versus peripheral calcifications. Intermediate attenuation lesion in the interpolar aspect of left kidney measuring 14 mm consistent wi th a previously ruptured cyst. URINARY BLADDER: Normal contour. GASTROINTESTINAL TRACT: Stomach is non-dilated. Small bowel has normal course and caliber. No colonic wall thickening or pericolonic inflammatory changes. Normal appendix. PERITONEUM: No free fluid. ABDOMINAL AORTA AND OTHER VESSELS: Normal caliber aorta and IVC. REPRODUCTIVE ORGANS: Hysterectomy. Small low-density 2.4 x 1.2 cm collection along the vaginal cuff p reviously measured up to 1.6 cm in 2021. This is probably little clinical significance in this postoperative. MUSCULOSKELETAL: No acute or suspicious osseous abnormality. ADDITIONAL FINDINGS: None. IMPRESSION: No acute findings within the abdomen or pelvis. Incidental findings as noted above.
[2024-09-24 11:15] LABS: Albumin 3.8 g/dL (3.4-5.0); Albumin/Globulin Ratio 1.1 (1.1-1.8); Anion Gap 7.5 mEq/L (5.0-15.0); Bilirubin Total 0.3 mg/dL (0.2-1.0); Globulin 3.5 g/dL (2.3-3.5); Potassium 3.5 mEq/L (3.5-5.1); Protein, Total 7.3 g/dL (6.4-8.2)
--- NOTE | 2024-09-24 11:31 | EDPHYS ---
Physician Documentation [facility] Name: Inés Curry Age: 49 yrs Sex: Female : 1975 Arrival Date: 09/24/2024 Time: 09:53 Bed DX1 Private MD: ED Physician Arian Chang HPI: 09/24 10:38 This 49 yrs old Female presents to ER via Ambulatory with complaints of Urinary Problem sp3 - Blood in urine. 10:38 49-year-old female with history of bladder spasms, depression, presents with hematuria, sp3 dysuria for 24 hours. Patient states it feels like a bladder infection but a little worse. No history of kidney stones noted. She denies fever, upper abdominal pain, chest pain, shortness of breath, bleeding anywhere else, or any other signs or symptoms on ROS at this time.. 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 - Infectious Disease History:: Denies. - Social history:: Smoking status: Patient denies any tobacco usage or history of. ROS: 10:39 Constitutional: Negative for fever, chills, and weight loss, Eyes: Negative for injury, sp3 pain, redness, and discharge, ENT: Negative for injury, pain, and discharge, Neck: Negative for injury, pain, and swelling, Cardiovascular: Negative for chest pain, palpitations, and edema, Respiratory: Negative for shortness of breath, cough, wheezing, and pleuritic chest pain, Abdomen/GI: Negative for abdominal pain, nausea, vomiting, diarrhea, and constipation, Back: Negative for injury and pain, MS/Extremity: Negative for injury and deformity, Skin: Negative for injury, rash, and discoloration, Neuro: Negative for headache, weakness, numbness, tingling, and seizure, Psych: Negative for depression, anxiety, suicide ideation, homicidal ideation, and hallucinations, Allergy/Immunology: Negative for hives, rash, and allergies, Endocrine: Negative for neck swelling, polydipsia, polyuria, polyphagia, and marked weight changes, 10:39 All other systems are negative, Exam: 10:39 Constitutional: This is a well developed, well nourished patient who is awake, alert, sp3 and in no acute distress. Head/Face: Normocephalic, atraumatic. Eyes: Pupils equal round and reactive to light, extra-ocular motions intact. Lids and lashes normal. Conjunctiva and sclera are non-icteric and not injected. Cornea within normal limits. Periorbital areas with no swelling, redness, or edema. ENT: Nares patent. No nasal discharge, no septal abnormalities noted. External auditory canals are clear. Oropharynx with no redness, swelling, or masses, exudates, or evidence of obstruction, uvula midline. Mucous membranes moist. Neck: Trachea midline, no thyromegaly or masses palpated, and no cervical lymphadenopathy. Supple, full range of motion without nuchal rigidity, or vertebral point tenderness. No Meningismus. Chest/axilla: Normal chest wall appearance and motion. Nontender with no deformity. No lesions are appreciated. Cardiovascular: Regular rate and rhythm with a normal S1 and S2. No gallops, murmurs, or rubs. Normal PMI, no JVD. No pulse deficits. Respiratory: Lungs have equal breath sounds bilaterally, clear to auscultation and percussion. No rales, rhonchi or wheezes noted. No increased work of breathing, no retractions or nasal flaring. Back: No spinal tenderness. No costovertebral tenderness. Full range of motion. Skin: Warm, dry with normal turgor. Normal color with no rashes, no lesions, and no evidence of cellulitis. MS/ Extremity: Pulses equal, no cyanosis. Neurovascular intact. Full, normal range of motion. Neuro: Awake and alert, GCS 15, oriented to person, place, time, and situation. Cranial nerves II-XII grossly intact. Motor strength 5/5 in all extremities. Sensory grossly intact. Cerebellar exam normal. Normal gait. Psych: Awake, alert, with orientation to person, place and time. Behavior, mood, and affect are within normal limits. 10:39 Abdomen/GI: Suprapubic pain to palpation without peritoneal signs, rebound or guarding. No CVA tenderness noted. Urine sample is grossly bloody., Vital Signs: 10:23 BP 134 / 85; Pulse 98; Resp 18; Temp 97.8; Pulse Ox 98% on R/A; Weight 57.15 kg; Height iw 4 ft. 11 in. ; Pain 1/10; 12:31 BP 127 / 79; Pulse 70; Resp 17; Pulse Ox 99% on R/A; rs5 10:23 Body Mass Index 25.45 (57.15 kg, 149.86 cm) iw 10:23 Pain Scale: Adult iw MDM: 10:12 Medical Screening Exam initiated sp3 10:40 Data reviewed: vital signs, nurses notes, lab test result(s), radiologic studies. ED sp3 course: 49-year-old female with hematuria and dysuria differential diagnosis includes UTI/pyelonephritis spectrum, ureterolithiasis/kidney stone spectrum, other intra-abdominal pathology, among others. I am not highly suspicious for sepsis or shock. Workup will include UA, labs and CT scan of the abdomen pelvis kidney stone protocol. Disposition pending workup and patient course.. 11:28 ED course: Patient with UTI without pyelonephritis or kidney stone. Will administer sp3 Levaquin 1 dose IV and discharge patient home on p.o. meds with follow-up to PCP.. 09/24 10:28 Order name: CBC with Diff; Complete Time: 11:18 sp3 09/24 10:28 Order name: CMP; Complete Time: 11:18 sp3 09/24 10:28 Order name: Lipase; Complete Time: 11:18 sp3 09/24 10:28 Order name: Test, Urine; Complete Time: 11:18 sp3 09/24 10:28 Order name: Urinalysis w/ reflexes; Complete Time: 11:18 sp3 09/24 11:15 Order name: Urine Culture EDVA 09/24 10:28 Order name: CT Abd/Pelvis - Without Contrast; Complete Time: 11:18 sp3 09/24 10:28 Order name: IV Saline Lock; Complete Time: 11:33 sp3 09/24 10:28 Order name: Labs collected and sent; Complete Time: 11:33 sp3 Administered Medications: 11:35 Drug: levofloxacin IVPB 500 mg 100 ml IVPB once over 30 mins Volume: 100 ml; Route: rs5 IVPB; Infused Over: 30 mins; Site: right hand; 12:34 Follow up: Response: No adverse reaction; IV Status: Completed infusion; IV Intake: rs5 100ml Disposition Summary: 09/24/24 11:30 Discharge Ordered Notes: Location: Home sp3 Condition: Stable sp3 Diagnosis - UTI, abdominal pain sp3 Followup: sp3 - With: Private Physician - When: Upon discharge from the Emergency Department - Reason: Continuance of care Discharge Instructions: - Discharge Summary Sheet sp3 - Urinary Tract Infection, Adult sp3 Forms: - Medication Reconciliation Form sp3 - Antibiotic Education sp3 - Prescription Opioid Use sp3 - Patient Portal Instructions sp3 - Leadership Thank You Letter sp3 Prescriptions: - Pyridium 200 mg Oral Tablet - take 1 tablet ORAL route every 8 hours for 3 days; 9 tablet; Refills: 0, sp3 Product Selection Permitted - Tramadol 50 mg Oral Tablet - take 1 tablet ORAL route every 8 hours as needed; 12 tablet; Refills: 0, sp3 Product Selection Permitted - levofloxacin 500 mg Oral tablet - take 1 tablet ORAL route once daily for 6 days; 6 tablet; Refills: 0, Product sp3 Selection Permitted Signatures: Dispatcher [employer] EDYasmine Genao, RN RN iw Arian Chang MD MD sp3 Horace Calvert RN RN rs5 Corrections: (The following items were deleted from the chart) 10:29 10:28 CBC+H.LAB.BRZ ordered. EDMS EDMS 10:29 10:28 COMPREHENSIVE METABOLIC PANEL+C.LAB.BRZ ordered. EDMS EDMS 10:29 10:28 LIPASE+C.LAB.BRZ ordered. EDMS EDMS 10:29 10:28 Test, Urine+UC.LAB.BRZ ordered. EDMS EDMS 10:29 10:28 Urinalysis+U.LAB.BRZ ordered. EDMS EDMS
--- NOTE | 2024-09-24 11:31 | ER ---
Nurse's Notes [facility] Name: Inés Curry Age: 49 yrs Sex: Female : 1975 Arrival Date: 09/24/2024 Time: 09:53 Bed DX1 Private MD: Diagnosis: UTI, abdominal pain Presentation: 09/24 10:12 Chief complaint: Patient states: pain and burning with urination started this morning , iw also has blood in urine. Coronavirus screen: At this time, the client does not indicate any symptoms associated with coronavirus-19. Ebola Screen: No symptoms or risks identified at this time. Risk Assessment: Do you want to hurt yourself or someone else? Patient reports no desire to harm self or others. Onset of symptoms was September 24, 2024. 10:12 Method Of Arrival: Ambulatory iw 10:15 Initial Sepsis Screen: Does the patient meet any 2 criteria? No. Patient's initial iw sepsis screen is negative. Does the patient have a suspected source of infection? No. Patient's initial sepsis screen is negative. 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 - Infectious Disease History:: Denies. - Social history:: Smoking status: Patient denies any tobacco usage or history of. Screenin:07 [facility] ED Fall Risk Assessment (Adult) History of falling in the last 3 months, rs5 including since admission No falls in past 3 months (0 pts) Confusion or Disorientation No (0 pts) Intoxicated or Sedated No (0 pts) Impaired Gait No (0 pts) Mobility Assist Device Used No (0 pt) Altered Elimination No (0 pt) Score/Fall Risk Level 0 - 2 = Low Risk Oriented to surroundings, Maintained a safe environment. Abuse screen: Denies threats or abuse. Nutritional screening: No deficits noted. Tuberculosis screening: No symptoms or risk factors identified. Assessment: 10:07 General: Appears in no apparent distress. uncomfortable, Behavior is calm, cooperative. rs5 Pain: Denies pain. Neuro: Level of Consciousness is awake, alert, obeys commands, Oriented to person, place, time, situation. Cardiovascular: Patient's skin is warm and dry. Respiratory: Airway is patent Respiratory effort is even, unlabored, Respiratory pattern is regular, symmetrical. GI: Abdomen is round non-distended, Abd is soft and non tender X 4 quads. : Reports burning with urination, blood in urine. EENT: No signs and/or symptoms were reported regarding the EENT system. Derm: Skin is intact, Skin is pink, warm \T\ dry. Musculoskeletal: Range of motion: intact in all extremities. 11:10 Reassessment: Patient and/or family updated on plan of care and expected duration. Pain rs5 level reassessed. Patient is alert, oriented x 3, equal unlabored respirations, skin warm/dry/pink. 11:35 Reassessment: Patient and/or family updated on plan of care and expected duration. Pain rs5 level reassessed. Patient is alert, oriented x 3, equal unlabored respirations, skin warm/dry/pink. pt up for discharge, waiting for antibiotics to finish prior to discharge per MD orders . 12:34 Reassessment: Patient and/or family updated on plan of care and expected duration. Pain rs5 level reassessed. Patient is alert, oriented x 3, equal unlabored respirations, skin warm/dry/pink. Vital Signs: 10:23 BP 134 / 85; Pulse 98; Resp 18; Temp 97.8; Pulse Ox 98% on R/A; Weight 57.15 kg; Height iw 4 ft. 11 in. ; Pain /10; 12:31 BP 127 / 79; Pulse 70; Resp 17; Pulse Ox 99% on R/A; rs5 10:23 Body Mass Index 25.45 (57.15 kg, 149.86 cm) iw 10:23 Pain Scale: Adult iw ED Course: 09:56 Patient arrived in ED. ra3 10:05 Arian Chang MD is Attending Physician. sp3 10:07 No provider procedures requiring assistance completed. rs5 10:07 Patient has correct armband on for positive identification. Bed in low position. Call rs5 light in reach. Side rails up X2. 10:14 Horace Calvert, RN is Primary Nurse. rs5 10:15 Triage completed. iw 10:20 Inserted saline lock: 22 gauge in left hand, using aseptic technique. rs5 10:58 CT Abd/Pelvis - Without Contrast In Process Unspecified. EDMS 12:35 Provided Education on: discharge instructions . rs5 12:36 IV discontinued, intact, bleeding controlled, No redness/swelling at site. Pressure iw dressing applied. Administered Medications: 11:35 Drug: levofloxacin IVPB 500 mg 100 ml IVPB once over 30 mins Volume: 100 ml; Route: rs5 IVPB; Infused Over: 30 mins; Site: right hand; 12:34 Follow up: Response: No adverse reaction; IV Status: Completed infusion; IV Intake: rs5 100ml Medication: 10:13 VIS not applicable for this client. rs5 Intake: 12:34 IV: 100ml; Total: 100ml. rs5 Outcome: 11:30 Discharge ordered by . sp3 12:37 Discharged to home ambulatory, with family, iw 12:37 Condition: good 12:37 Discharge instructions given to patient, Instructed on discharge instructions, follow up and referral plans. Demonstrated understanding of instructions, follow-up care, medications, Prescriptions given X 2, 12:37 Patient left the ED. iw Signatures: Dispatcher [employer] EDMS Yasmine Guerrero, HAO RN iw Arian Chang MD MD sp3 Horace Calvert RN RN rs5 Kiana Soler 3
[2024-09-24] MEDS ORDERED: Levofloxacin500mg IV 500 MG/100 ML BAG IV ONE (11:35)
[2024-09-24 13:01] VITALS: TEMP 97.8
[2024-09-24 13:02] VITALS: BP 127/79; O2SAT 99
== END 2024-09-24 12:37 | disposition home or self-care (01) ==
LOC: ER 09:53
DX: N39.0 Urinary tract infection, site not specified (principal); R31.9 Hematuria, unspecified
CPT/HCPCS: 36415; 74176; 80053; 81001; 81025; 83690; 85025; 87086; 87088; 96365; 99284